=== PATIENT | male | born 1940 | race Caucasian/White ===

== ENCOUNTER 2016-12-10 08:00 | Emergency (ER) | payer MEDICARE, OTHER ==
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
[2016-12-10 09:31] VITALS: BP 140/81; PULSE 69; RESP 18
--- NOTE | 2016-12-10 09:41 | US ---
EXAMINATION TYPE: US venous doppler duplex LE RT DATE OF EXAM: 12/10/2016 9:32 AM TECHNIQUE: Duplex Doppler ultrasound examination of the right lower extremity. COMPARISON: NONE CLINICAL HISTORY: 76-year-old male with Pain. SIDE PERFORMED: Right FINDINGS: VESSELS IMAGED: External Iliac Vein (EIV) Common Femoral Vein Deep Femoral Vein Greater Saphenous Vein * Femoral Vein Popliteal Vein Small Saphenous Vein * Proximal Calf Veins (* superficial vessels) Right Leg: Negative for DVT IMPRESSION: No evidence for DVT within the right lower extremity imaged from the groin to the upper calf.
--- NOTE | 2016-12-10 09:54 | XR ---
EXAMINATION TYPE: XR knee complete RT DATE OF EXAM: 12/10/2016 9:39 AM CLINICAL HISTORY: pain TECHNIQUE: Frontal, lateral and oblique images of the right foot are obtained. COMPARISON: None. FINDINGS: There is no acute fracture/dislocation evident. The joint spaces appear mildly narrowed. Small patellar joint effusion noted. The overlying soft tissue appears unremarkable. IMPRESSION: There is no acute fracture or dislocation. ICD 10 NO FRACTURE, INITIAL EVALUATION
[2016-12-10 10:45] VITALS: TEMP 98
== END 2016-12-10 10:46 | disposition home or self-care (01) ==
LOC: EC 08:00
DX: M79.604 Pain in right leg (principal); M25.561 Pain in right knee; J42 Unspecified chronic bronchitis; E07.9 Disorder of thyroid, unspecified; Z87.891 Personal history of nicotine dependence; Z79.82 Long term (current) use of aspirin; Z79.52 Long term (current) use of systemic steroids
CPT/HCPCS: 99284

== ENCOUNTER 2018-01-28 22:05 | Inpatient (IN) | payer MEDICARE, OTHER ==
[2018-01-28] MEDS ORDERED: PANTOPRAZOLE 40 MG/10 ML VIAL IVP STA (23:00)
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
[2018-01-28 23:09] LABS: Basophils # (A) 0.1 k/uL (0-0.2); Basophils % (A) 1 %; Eosinophils # (A) 0.2 k/uL (0-0.7); Eosinophils % (A) 3 %; HCT 37.7 % (39.0-53.0); HGB 13.2 gm/dL (13.0-17.5); Lymphocytes # (A) 1.9 k/uL (1.0-4.8); Lymphocytes % (A) 28 %; MCH 29.9 pg (25.0-35.0); MCHC 34.9 g/dL (31.0-37.0); MCV 85.6 fL (80.0-100.0); Mean Platelet Volume 7.9; Monocytes # (A) 0.5 k/uL (0-1.0); Monocytes % (A) 7 %; Neutrophils # (A) 4.2 k/uL (1.3-7.7); Neutrophils % (A) 60 %; Platelet Count 208 k/uL (150-450); RDW 13.2 % (11.5-15.5)
[2018-01-28 23:22] LABS: Calcium 9.1 mg/dL (8.4-10.2); Potassium 4.2 mmol/L (3.5-5.1); Total Bilirubin 0.9 mg/dL (0.2-1.3); Total Protein 6.4 g/dL (6.3-8.2)
[2018-01-28 23:33] LABS: Creatine Kinase 66 U/L (55-170)
[2018-01-28 23:43] LABS: Prothrombin Time 9.6 sec (9.0-12.0)
[2018-01-28 23:44] LABS: Partial Thromboplastin Time 21.7 sec (22.0-30.0)
[2018-01-28 23:46] LABS: Creatine Kinase MB 1.4 ng/mL (0.0-2.4); Troponin I <0.012 ng/mL (0.000-0.034)
--- NOTE | 2018-01-28 23:47 | XR ---
EXAMINATION TYPE: XR abdomen acute w cxr DATE OF EXAM: 01/28/2018 COMPARISON: Chest x-ray 08/16/2015 HISTORY: Vomiting blood. Chest pain. TECHNIQUE: 4 views FINDINGS: Lungs are clear. There is no heart failure. Heart size is normal. There is no pleural effusion. Bowel gas pattern is normal. There is no sign of intestinal obstruction or pneumoperitoneum. Fecal pattern is normal. There are no pathologic calcifications over the kidney s. IMPRESSION: Nonacute abdomen. Chest is stable compared to old exam.
[2018-01-29] MEDS ORDERED: NALOXONE 0.4 MG/ML 1 ML VIAL IV PRN (00:57)
[2018-01-29] MEDS: SODIUM CHLORIDE 0.9% 1,000 ML IV SCH ×3 (01:39→20:10)
[2018-01-29 02:39] LABS: Glucose,Whole Blood 127 mg/dL (75-99)
[2018-01-29 03:02] VITALS: BMI 29.2
[2018-01-29 04:58] LABS: Basophils % (A) 1 %; Eosinophils # (A) 0.1 k/uL (0-0.7); Eosinophils % (A) 1 %; HCT 31.9 % (39.0-53.0); HGB 11.1 gm/dL (13.0-17.5); Lymphocytes # (A) 0.9 k/uL (1.0-4.8); Lymphocytes % (A) 17 %; MCH 29.9 pg (25.0-35.0); MCHC 34.9 g/dL (31.0-37.0); MCV 85.6 fL (80.0-100.0); Mean Platelet Volume 7.8; Monocytes # (A) 0.4 k/uL (0-1.0); Monocytes % (A) 6 %; Neutrophils # (A) 4.1 k/uL (1.3-7.7); Neutrophils % (A) 72 %; Platelet Count 175 k/uL (150-450); RBC 3.72 m/uL (4.30-5.90); WBC 5.6 k/uL (3.8-10.6)
[2018-01-29 05:16] LABS: Calcium 8.3 mg/dL (8.4-10.2); Phosphorus 2.9 mg/dL (2.5-4.5); Potassium 4.7 mmol/L (3.5-5.1)
[2018-01-29] MEDS: PANTOPRAZOLE 40 MG/10 ML VIAL IV SCH ×2 (09:38→20:11)
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
[2018-01-29 11:54] LABS: HCT 32.5 % (39.0-53.0); MCH 29.3 pg (25.0-35.0); MCHC 33.7 g/dL (31.0-37.0); MCV 86.8 fL (80.0-100.0); Mean Platelet Volume 8.1; Platelet Count 176 k/uL (150-450); RBC 3.74 m/uL (4.30-5.90); RDW 13.4 % (11.5-15.5); WBC 5.1 k/uL (3.8-10.6)
[2018-01-29 17:34] LABS: HCT 31.1 % (39.0-53.0); HGB 10.6 gm/dL (13.0-17.5); MCH 29.7 pg (25.0-35.0); MCHC 34.1 g/dL (31.0-37.0); MCV 87.1 fL (80.0-100.0); Platelet Count 174 k/uL (150-450); RBC 3.58 m/uL (4.30-5.90); RDW 13.3 % (11.5-15.5)
[2018-01-29 18:17] LABS: Appearance,Urine Clear (Clear); Bilirubin,Urine Negative (Negative); Blood,Urine Negative (Negative); Color,Urine Light Yellow; Glucose,Urine (UA) Negative (Negative); Ketones,Urine Negative (Negative); Leukocyte Esterase,Urine Negative (Negative); Nitrite,Urine Negative (Negative); Protein,Urine Negative (Negative); Urobilinogen,Urine <2.0 mg/dL (<2.0)
[2018-01-29 23:22] LABS: HCT 29.5 % (39.0-53.0); HGB 10.2 gm/dL (13.0-17.5); MCH 29.7 pg (25.0-35.0); MCHC 34.5 g/dL (31.0-37.0); MCV 86.3 fL (80.0-100.0); Mean Platelet Volume 7.9; Platelet Count 160 k/uL (150-450); RBC 3.42 m/uL (4.30-5.90); RDW 13.3 % (11.5-15.5)
[2018-01-30] MEDS: SODIUM CHLORIDE 0.9% 1,000 ML IV SCH ×3 (04:22→17:18)
[2018-01-30 04:47] LABS: Basophils % (A) 1 %; Eosinophils # (A) 0.1 k/uL (0-0.7); Eosinophils % (A) 3 %; HCT 30.9 % (39.0-53.0); HGB 10.4 gm/dL (13.0-17.5); Lymphocytes % (A) 26 %; MCH 29.5 pg (25.0-35.0); MCHC 33.6 g/dL (31.0-37.0); MCV 87.9 fL (80.0-100.0); Mean Platelet Volume 7.7; Monocytes # (A) 0.3 k/uL (0-1.0); Monocytes % (A) 7 %; Neutrophils # (A) 2.3 k/uL (1.3-7.7); Neutrophils % (A) 60 %; Platelet Count 151 k/uL (150-450); RBC 3.51 m/uL (4.30-5.90); RDW 13.5 % (11.5-15.5); WBC 3.8 k/uL (3.8-10.6)
[2018-01-30 04:58] LABS: Anion Gap 8 mmol/L; Blood Urea Nitrogen 15 mg/dL (9-20); Calcium 8.2 mg/dL (8.4-10.2); Carbon Dioxide 23 mmol/L (22-30); Chloride 110 mmol/L (98-107); Glucose 96 mg/dL (74-99); Magnesium 2.2 mg/dL (1.6-2.3); Phosphorus 3.1 mg/dL (2.5-4.5); Potassium 4.2 mmol/L (3.5-5.1); Sodium 141 mmol/L (137-145)
[2018-01-30] MEDS: PANTOPRAZOLE 40 MG/10 ML VIAL IV SCH ×2 (07:50→20:54)
--- NOTE | 2018-01-30 09:28 | P.PN ---
Subjective Progress Note Date: 01/30/18 Principal diagnosis: Acute blood loss anemia with coffee ground hematemesis and black tarry stools Gerard is a 78-year-old white male patient of Dr. Holden who presented to the emergency department on 01/28/2018 with 3 day history of black stools and coffee ground emesis. In the emergency room room he also had some burgundy- colored clots in the emesis upon arrival. Denied any fevers, denied any chills. Denied any lightheadedness or chest pain. Denied any prior history of GI bleeding. He drinks 2 beers on a regular basis, denies drinking any liquor. Acute abdominal series showed nonacute abdomen, and a stable chest. Patient had a previous colonoscopy on 05/29/[address] Valenzuela, which showed sigmoid diverticulosis with no evidence of acute diverticulitis, strictures, polyps or cancer. Other past medical history includes GERD/reflux, hyperlipidemia, hypertension, hypothyroidism, varicose veins for which patient follows with the vascular surgeon, nicotine dependence, which is currently in remission. Surgical history includes appendectomy, hernia repair, hemorrhoidectomy, cataract surgery on the right eye. Initial lab work showed hemoglobin of 13.2 on 01/28/2018, white count of 7.0, no evidence of coagulopathy, INR was 1.0, electrolytes were within normal limits, BUN was 30, creatinine is 1.0. Liver enzymes, lipase were all within normal limits, cardiac enzymes and troponins were negative times one. Serum alcohol was less than 10. His labs hemoglobin is down to 11.1. Patient has had no further episodes of hematemesis or black tarry stool since admission to the ICU. Vital signs remain stable, he is hemodynamically stable. He is awake alert, not requiring any supplemental oxygen. He is afebrile. Denies any distress, denies any chest pain or dyspnea , denies any abdominal discomfort. Patient remains nothing by mouth, and is awaiting to be evaluated by the GI service for possible EGD. On 01/30/2018 patient seen in follow-up in the intensive care unit. He had one episode of dark stool since admission, it is hemoglobin is 10.4, no further episodes of hematemesis or coffee-ground emesis. No leukocytosis, renal profile is within normal limits, electrolytes are within normal limits with exception of chloride which is at 110 on today's blood work. Patient remains hemodynamically stable, he has not required any blood transfusions. Denies any abdominal discomfort, denies any chest pain or dyspnea. He is on room air, O2 sat at 95%. Maintenance IVs 0.9 at 125 ml/hr. Patient is scheduled for EGD today. Objective - Vital Signs Vital signs: Vital Signs Temp 97.7 F 01/30/18 04:00 Pulse 76 01/30/18 07:00 Resp 17 01/30/18 07:00 BP 106/72 01/30/18 07:00 Pulse Ox 95 01/30/18 07:00 Intake & Output 01/29/18 01/30/18 01/30/18 18:59 06:59 18:59 Intake Total 1825 2220 250 Output Total 2049 1075 325 Balance -225 1145 -75 Weight 86.1 kg Intake: IV 1375 1500 250 Sodium Chloride 0.9% 1, 1375 1500 250 000 ml @ 125 mls/hr IV . Q8H [facility] Rx#:[id number] Oral 450 720 Output: Urine 2049 1075 325 Other: Voiding Method Urinal Urinal - Exam GENERAL EXAM: Alert, pleasant, 78-year-old white male that appears younger than his stated age, comfortable in no apparent distress. HEAD: Normocephalic/atraumatic. EYES: Normal reaction of pupils, equal size. Conjunctiva pink, sclera white. NOSE: Clear with pink turbinates. THROAT: No erythema or exudates. NECK: No masses, no JVD, no thyroid enlargement, no adenopathy. CHEST: No chest wall deformity. Symmetrical expansion. LUNGS: Clear lung sounds, no rhonchi, no wheezes or rales noted on today's exam. CVS: Regular rate and rhythm, normal S1 and S2, no gallops, no murmurs, no rubs ABDOMEN: Soft, nontender. No hepatosplenomegaly, normal bowel sounds, no guarding or rigidity. EXTREMITIES: No clubbing, no edema, no cyanosis, 2+ pulses and upper and lower extremities. MUSCULOSKELETAL: Muscle strength and tone normal. SPINE: No scoliosis or deformity SKIN: No rashes CENTRAL NERVOUS SYSTEM: Alert and oriented -3. No focal deficits, tone is normal in all 4 extremities. PSYCHIATRIC: Alert and oriented -3. Appropriate affect. Intact judgment and insight. - Labs CBC & Chem 7: 01/30/18 04:04 01/30/18 04:04 Labs: Abnormal Lab Results - Last 24 Hours (Table) 01/29/18 01/29/18 01/29/18 Range/Units 11:32 17:15 23:13 RBC 3.74 L 3.58 L 3.42 L (4.30-5.90) m/uL Hgb 11.0 L 10.6 L 10.2 L (13.0-17.5) gm/dL Hct 32.5 L 31.1 L 29.5 L (39.0-53.0) % Chloride (98-107) mmol/L Calcium (8.4-10.2) mg/dL 01/30/18 01/30/18 Range/Units 04:04 04:04 RBC 3.51 L (4.30-5.90) m/uL Hgb 10.4 L (13.0-17.5) gm/dL Hct 30.9 L (39.0-53.0) % Chloride 110 H (98-107) mmol/L Calcium 8.2 L (8.4-10.2) mg/dL Assessment and Plan Plan: Assessment: #1. Acute blood loss anemia with coffee ground hematemesis, and black tarry stools. Hemoglobin went down from 13.2, down to 10.4 #2. Chronic EtOH use, 2-3 beers on the daily basis, but no evidence of liver disease. #3. Dysphasia, has been treated with rounds of antibiotics per PCP. limited oropharyngeal exam was negative for any evidence of exudates, redness, or swelling #4. History of diverticulosis as per colonoscopy from 05/29/2016 #5. Hypertension, hyperlipidemia #6. GERD/reflux #7. Hypothyroidism #8. History of appendectomy, hernia repair, hemorrhoidectomy #9. Nicotine dependence, currently in remission Plan: Will await the results of the EGD today, patient has not had any recurrence of hematemesis or coffee ground emesis. He states he had one episode of dark stool since admission, hemoglobin is down to 10.4 on today's exam, patient remains hemodynamically stable, denies any chest pain or dyspnea. Patient can be transferred to the general medical floor today pending the results of the EGD. I performed a history & physical examination of the patient and discussed their management with my nurse practitioner, Claire Nj. I reviewed the nurse practitioner's note and agree with the documented findings and plan of care. Lung sounds are clear. The findings and the impression was discussed with the patient. I attest to the documentation by the nurse practitioner. Critical care time is over 45 minutes Time with Patient: Greater than 30
--- NOTE | 2018-01-30 11:26 | P.PN ---
Subjective Progress Note Date: 01/30/18 Gerard Peoples is a 78-year-old male well known to my practice who presented to the emergency department on 01/28/2018 with 3 day history of black stools and coffee ground emesis. In the emergency room room he also had more bloody emesis with blood clots in the emesis. . Denied any lightheadedness or chest pain. He denied any prior history of GI bleeding. He drinks 2-3 beers daily, denies drinking any liquor. Patient had a previous colonoscopy in [address] Ortega, which showed sigmoid diverticulosis. Initial lab work showed hemoglobin of 13.2 on 01/28/2018, white count of 7.0, no evidence of coagulopathy, INR was 1.0, electrolytes were within normal limits , BUN was 30, creatinine is 1.0. Liver enzymes, lipase were all within normal limits. Serum alcohol was less than 10. His labs hemoglobin is down to 11.1. Patient has had no further episodes of hematemesis or black tarry stool since admission to the ICU. Vital signs remain stable, he is hemodynamically stable. He is awake alert, not requiring any supplemental oxygen. He is afebrile. Denies any distress, denies any chest pain or dyspnea, denies any abdominal discomfort. Patient remains nothing by mouth, and is awaiting to be evaluated by the GI service for possible EGD. 01/30/2018 patient lying in bed comfortably. He is scheduled for an EGD this afternoon. Hemoglobin 10.4. He's had no further episodes of vomiting since in the ER. Denies abdominal pain. Denies any chest pain or shortness of breath. Patient did have one dark stool yesterday. Denies any burning with urination. Denies any tremors. Denies any anxiety or agitation. Objective - Vital Signs Vital signs: Vital Signs Temp 98.1 F 01/30/18 08:00 Pulse 70 01/30/18 09:00 Resp 16 01/30/18 09:00 BP 109/72 01/30/18 09:00 Pulse Ox 95 01/30/18 09:00 Intake & Output 01/29/18 01/30/18 01/30/18 18:59 06:59 18:59 Intake Total 1825 2220 500 Output Total 2050 1075 600 Balance -225 1145 -100 Weight 86.1 kg Intake: IV 1375 1500 500 Sodium Chloride 0.9% 1, 1375 1500 500 000 ml @ 125 mls/hr IV . Q8H [facility] Rx#:[id number] Oral 450 720 Output: Urine 2050 1075 600 Other: Voiding Method Urinal Urinal Urinal - Exam Head normocephalic Neck supple Lungs clear to auscultation bilaterally no wheezing or crackles Heart regular rate and rhythm S1-S2, no rub or gallop Abdomen is soft nontender nondistended positive bowel sounds no hepatosplenomegaly Extremities no edema Neuro alert and orientated to 3 - Labs CBC & Chem 7: 01/30/18 04:04 01/30/18 04:04 Labs: Abnormal Lab Results - Last 24 Hours (Table) 01/29/18 01/29/18 01/29/18 Range/Units 11:32 17:15 23:13 RBC 3.74 L 3.58 L 3.42 L (4.30-5.90) m/uL Hgb 11.0 L 10.6 L 10.2 L (13.0-17.5) gm/dL Hct 32.5 L 31.1 L 29.5 L (39.0-53.0) % Chloride (98-107) mmol/L Calcium (8.4-10.2) mg/dL 01/30/18 01/30/18 Range/Units 04:04 04:04 RBC 3.51 L (4.30-5.90) m/uL Hgb 10.4 L (13.0-17.5) gm/dL Hct 30.9 L (39.0-53.0) % Chloride 110 H (98-107) mmol/L Calcium 8.2 L (8.4-10.2) mg/dL Assessment and Plan Assessment: #1 acute GI bleed, most likely upper GI tract. Patient seen by GI service they' ve planned EGD for today. Continue IV Protonix 40 mg twice daily #2 acute blood loss anemia. Hemoglobin 10.4. Continue to monitor CBC #3 underlying history of chronic alcohol use patient drinks 2-3 beers daily #4 underlying history of hypertension well-controlled on medications #5 previously diagnosed with diverticulosis on colonoscopy in 2016 #6 history of gastroesophageal reflux disease #7 history of hypothyroidism #8 previous history of smoking #9 daily alcohol use of 2-3 beers I performed an examination of the patient and discussed their management with the physician [employer] Rug [employer]ter. I have reviewed the Physician [employer]ter's notes and agree with the documented findings and plan of care
[2018-01-30 11:39] LABS: Basophils % (A) 1 %; Eosinophils # (A) 0.1 k/uL (0-0.7); Eosinophils % (A) 3 %; HCT 30.7 % (39.0-53.0); HGB 10.6 gm/dL (13.0-17.5); Lymphocytes # (A) 0.6 k/uL (1.0-4.8); Lymphocytes % (A) 17 %; MCH 29.6 pg (25.0-35.0); MCHC 34.4 g/dL (31.0-37.0); MCV 86.1 fL (80.0-100.0); Mean Platelet Volume 7.3; Monocytes # (A) 0.2 k/uL (0-1.0); Monocytes % (A) 6 %; Neutrophils # (A) 2.7 k/uL (1.3-7.7); Neutrophils % (A) 72 %; Platelet Count 156 k/uL (150-450); RBC 3.56 m/uL (4.30-5.90); RDW 13.4 % (11.5-15.5); WBC 3.7 k/uL (3.8-10.6)
[2018-01-30] MEDS ORDERED: LORazepam 2 MG/ML INJ IV PRN (14:07)
[2018-01-30] MEDS ORDERED: IV FLUID CONTINUATION 1,000 ML IV ONE (14:30)
[2018-01-30] MEDS ORDERED: PROPOFOL 10 MG/ML 20 ML VIAL IV ONE (14:31)
[2018-01-30] MEDS ORDERED: LIDOCAINE 1% INJ 10MG/ML (20 ML MDV) ONE (14:31)
--- NOTE | 2018-01-30 15:08 | P.PCN ---
Date of Procedure: 01/30/18 Procedure(s) Performed: Procedure: Esophagogastroduodenoscopy and biopsy. Preoperative diagnosis: Upper GI bleeding. Postoperative diagnosis: 1. 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 2. Sliding hiatal hernia. 3. No obvious abnormalities in the stomach and duodenum. 4. Multiple biopsies obtained from the esophageal mass and a picture was taken to be included in the record. Preparation and sedation: Was provided by anesthesia. Brief clinical history: The patient is a 78-year-old male with a past medical history of GERD, hyperlipidemia, hypertension, daily beer consumption 2-3 beers a day admitted with acute hematemesis and melena 2 days. Patient's had one moderate black colored bowel movement daily for 2 days prior to admission, as well as a few episodes of maroon colored hematemesis the day before admission. Reports mild indigestion and mild midepigastric discomfort. No history of peptic ulcer disease or recent EGD. Colonoscopy May 2016 screening for change in bowel habits identified sigmoid diverticulosis. Takes a baby aspirin daily no other antiplatelet or NSAID medications. Denies weight loss, hematochezia, fever or chills. Admission hemoglobin 13.2 dropped to 11.1. Platelet 175. INR 1.0. BUN 30. Creatinine 1.0. LFTs within normal limits. Lipase 166. Acute abdominal series nonacute abdomen. The details are summarized in the history and physical and dictated consultation and progress notes. This evaluation is to assess for a source of upper GI bleeding. Procedure: With the patient on his left lateral decubitus position and after informed consent and adequate sedation, I passed the Olympus-GIF 160 video upper endoscope through the cricopharyngeus down the esophagus. GE junction was irregular and it started around 35-36 cm from the incisors and the tubular esophagus continues for another 4-5 cm. The endoscope was then advanced through a hiatal hernia to the rest of the stomach which was insufflated with air and inspected in detail including the retroflex view in the cardia. Finally , the endoscope was passed through the pylorus into the duodenum. Stomach, pyloric channel, duodenal bulb, post bulbar area and descending duodenum did not show any obvious abnormalities or bleeding. The distal esophagus in the Patterson's segment showed an ulcerated mass measuring around 3 or 4 cm in greatest dimension. There was friability but no spontaneous bleeding. No other obvious abnormalities were seen in the esophagus or any evidence of active bleeding noted in this exam. I obtained multiple biopsies from the esophageal mass as well as couple pictures then the endoscope was withdrawn. The patient tolerated the procedure well. Plan: The patient was briefed regarding the findings on this exam. Will await biopsy results and make further plans.
[2018-01-30] MEDS: THIAMINE 100 MG TAB PO SCH (15:41)
[2018-01-30] MEDS: LEVOTHYROXINE 25 MCG TAB PO SCH (15:42)
[2018-01-30 23:47] VITALS: RESP 18
[2018-01-31] MEDS: SODIUM CHLORIDE 0.9% 1,000 ML IV SCH ×2 (00:45→08:12)
[2018-01-31] MEDS: LEVOTHYROXINE 25 MCG TAB PO SCH (06:00)
[2018-01-31 06:39] VITALS: BP 117/74; PULSE 76; TEMP 98.3
[2018-01-31] MEDS: PANTOPRAZOLE 40 MG/10 ML VIAL IV SCH (07:41)
[2018-01-31] MEDS: THIAMINE 100 MG TAB PO SCH (08:12)
[2018-01-31 08:17] LABS: Basophils % (A) 1 %; Eosinophils # (A) 0.2 k/uL (0-0.7); Eosinophils % (A) 4 %; HCT 32.8 % (39.0-53.0); Lymphocytes # (A) 0.9 k/uL (1.0-4.8); Lymphocytes % (A) 21 %; MCH 29.2 pg (25.0-35.0); MCHC 33.4 g/dL (31.0-37.0); MCV 87.5 fL (80.0-100.0); Mean Platelet Volume 7.8; Monocytes # (A) 0.3 k/uL (0-1.0); Monocytes % (A) 7 %; Neutrophils # (A) 2.8 k/uL (1.3-7.7); Neutrophils % (A) 65 %; Platelet Count 172 k/uL (150-450); RBC 3.75 m/uL (4.30-5.90); RDW 13.4 % (11.5-15.5); WBC 4.3 k/uL (3.8-10.6)
[2018-01-31 08:42] LABS: Anion Gap 10 mmol/L; Blood Urea Nitrogen 10 mg/dL (9-20); Calcium 8.7 mg/dL (8.4-10.2); Carbon Dioxide 25 mmol/L (22-30); Chloride 109 mmol/L (98-107); Glucose 94 mg/dL (74-99); Magnesium 2.2 mg/dL (1.6-2.3); Phosphorus 3.3 mg/dL (2.5-4.5); Potassium 4.3 mmol/L (3.5-5.1); Sodium 144 mmol/L (137-145)
--- NOTE | 2018-01-31 10:36 | P.PN ---
Subjective Progress Note Date: 01/31/18 Principal diagnosis: GI bleed esophageal mass Status post EGD for evaluation of hematemesis findings of esophageal mass in the segment of Majano's esophagus with ulcerated surface status post biopsies. Presently tolerating advance full liquid diet. No recurrence of hematemesis melena or hematochezia. Denies abdominal pain. Hemoglobin 11.0. Objective - Vital Signs Vital signs: Vital Signs Temp 98.3 F 01/31/18 06:38 Pulse 76 01/31/18 06:38 Resp 18 01/31/18 06:38 BP 117/74 01/31/18 06:38 Pulse Ox 96 01/31/18 06:38 Intake & Output 01/30/18 01/31/18 01/31/18 18:59 06:59 18:59 Intake Total 1100 900 Output Total 1200 Balance -100 900 Intake: IV 1100 Sodium Chloride 0.9% 1, 1000 000 ml @ 125 mls/hr IV . Q8H [facility] Rx#:[id number] Oral 900 Output: Urine 1200 Other: Voiding Method Urinal Toilet Urinal # Voids 2 - Exam General appearance: The patient is alert, oriented, in no acute distress. HET: Head is normocephalic and atraumatic. Pupils are equal and reactive. Oropharynx is clear without lesions. Neck: Supple without lymphadenopathy. Trachea midline. Heart: S1 S2. Regular rate and rhythm. Lungs: No crackles or wheezes are heard. Abdomen: Soft, nontender, nondistended with bowel sounds. No peritoneal signs. No palpable organomegaly or masses. Extremities: Normal skin color and turgor. No cyanosis, rash, ulceration, clubbing, or edema. Radial and pedal pulses are 2/4 bilaterally. Neurological: No focal deficits. Strength and sensation are grossly intact. - Labs CBC & Chem 7: 01/31/18 07:45 01/31/18 07:45 Labs: Abnormal Lab Results - Last 24 Hours (Table) 01/30/18 01/31/18 01/31/18 Range/Units 11:02 07:45 07:45 WBC 3.7 L (3.8-10.6) k/uL RBC 3.56 L 3.75 L (4.30-5.90) m/uL Hgb 10.6 L 11.0 L (13.0-17.5) gm/dL Hct 30.7 L 32.8 L (39.0-53.0) % Lymphocytes # 0.6 L 0.9 L (1.0-4.8) k/uL Chloride 109 H (98-107) mmol/L Assessment and Plan (1) Hematemesis Current Visit: Yes Status: Acute Code(s): K92.0 - HEMATEMESIS SNOMED Code( s): 5260511 (2) Acute blood loss anemia Current Visit: Yes Status: Acute Code(s): D62 - ACUTE POSTHEMORRHAGIC ANEMIA SNOMED Code(s): 250403233 (3) Consumes three beers daily Current Visit: Yes Status: Acute Code(s): Z78.9 - OTHER SPECIFIED HEALTH STATUS SNOMED Code(s): 565411913 (4) Melena Current Visit: Yes Status: Acute Code(s): K92.1 - MELENA SNOMED Code(s): 0066199 (5) Upper GI bleed Current Visit: Yes Status: Acute Code(s): K92.2 - GASTROINTESTINAL HEMORRHAGE, UNSPECIFIED SNOMED Code(s): 10902280 (6) Esophageal mass Current Visit: Yes Status: Acute Code(s): K22.9 - DISEASE OF ESOPHAGUS, UNSPECIFIED SNOMED Code(s): 647045300 (7) Majano's esophagus determined by endoscopy Current Visit: Yes Status: Acute Code(s): K22.70 - MAJANO'S ESOPHAGUS WITHOUT DYSPLASIA SNOMED Code(s): 520799563 Plan: 1. Discharge per medicine. Diet as tolerated. Return office in 2-3 weeks. Protonix 40 mg daily. Assessment and plan a care discussed with Dr. Ortega
--- NOTE | 2018-01-31 12:32 | P.DS ---
Providers Date of admission: 01/29/18 00:57 Expected date of discharge: 01/31/18 Attending physician: Lora Holden Consults: 01/29/18 00:57 Consult Physician Urgent Consulting Provider: Saul Sim Consult Reason/Comments: ICU management for upper GI bleed Do you want consulting provider notified?: Yes Primary care physician: Lora Navin [facility] Course: Discharge diagnosis #1 acute GI bleed likely secondary to esophageal mass in the segment of Patterson' s esophagus with ulcerated surface. Biopsies are pending. Continue Protonix. We will hold aspirin until seen in the office #2 acute blood loss anemia secondary to GI bleed #3 underlying history of chronic alcohol use patient drinks 2-3 beers daily #4 underlying history of hypertension well-controlled on medications #5 previously diagnosed with diverticulosis on colonoscopy in 2016 #6 history of gastroesophageal reflux disease #7 history of hypothyroidism #8 previous history of smoking #9 daily alcohol use of 2-3 beers Hospital course Gerard Peoples is a 78-year-old male well known to my practice who presented to the emergency department on 01/28/2018 with 3 day history of black stools and coffee ground emesis. In the emergency room room he also had more bloody emesis with blood clots in the emesis. . Denied any lightheadedness or chest pain. He denied any prior history of GI bleeding. He drinks 2-3 beers daily, denies drinking any liquor. Patient had a previous colonoscopy in [address] Ortega, which showed sigmoid diverticulosis. Initial lab work showed hemoglobin of 13.2 on 01/28/2018, white count of 7.0, no evidence of coagulopathy, INR was 1.0, electrolytes were within normal limits , BUN was 30, creatinine is 1.0. Liver enzymes, lipase were all within normal limits. Serum alcohol was less than 10. His labs hemoglobin is down to 11.1. Patient has had no further episodes of hematemesis or black tarry stool since admission to the ICU. Vital signs remain stable, he is hemodynamically stable. He is awake alert, not requiring any supplemental oxygen. He is afebrile. Denies any distress, denies any chest pain or dyspnea, denies any abdominal discomfort. Patient remains nothing by mouth, and is awaiting to be evaluated by the GI service for possible EGD. Patient is status post EGD with results showing an esophageal mass in segment of Patterson's esophagus with ulcerated surface and no active bleed. Patient is tolerating advancement of diet. Currently on a full liquid. He will receive a soft diet before discharge. Is on is tolerating this will be discharged home. Hemoglobin at discharge was 11. He is scheduled to follow-up with Dr. Abebe in 2-3 weeks. Biopsy results are pending. And depending on those results patient may need to be evaluated by oncology and outpatient setting. Again his vomiting has resolved. He's reports still some residual black stool but this is improving as well. We'll continue holding patient's aspirin until he is evaluated in the office with Dr. Holden. And at that time would recommend checking a CBC. Patient is medical stable for discharge and has been cleared by GI service. GI service has written a prescription for Protonix 80 mg by mouth daily. Patient has also been educated to refrain from alcohol use. I performed an examination of the patient and discussed their management with the physician Vegetable Vendor. I have reviewed the Physician Vegetable Vendor's notes and agree with the documented findings and plan of care Patient Condition at Discharge: Stable Plan - Discharge Summary Discharge Rx Participant: Yes New Discharge Prescriptions: New Pantoprazole [Protonix] 40 mg PO DAILY #30 tablet. Continue Levothyroxine Sodium [Synthroid] 25 mcg PO DAILY Discontinued Aspirin 81 mg PO DAILY Discharge Medication List Levothyroxine Sodium [Synthroid] 25 mcg PO DAILY 05/25/16 [History] Pantoprazole [Protonix] 40 mg PO DAILY #30 tablet. 01/31/18 [Rx] Follow up Appointment(s)/Referral(s): Rosendo Ortega MD [STAFF PHYSICIAN] - 02/17/18 3:00 pm Lora Holden MD [Primary Care Provider] - 1 Week Activity/Diet/Wound Care/Special Instructions: Diet: regular No ETOH Activity: as tolerated patient can be discharged this afternoon as long as he tolerates soft diet Discharge Disposition: HOME SELF-CARE
--- NOTE | 2018-01-31 12:35 | P.PN ---
Subjective Progress Note Date: 01/31/18 Principal diagnosis: Acute blood loss anemia with coffee ground hematemesis and black tarry stools Gerard is a 78-year-old white male patient of Dr. Holden who presented to the emergency department on 01/28/2018 with 3 day history of black stools and coffee ground emesis. In the emergency room room he also had some burgundy- colored clots in the emesis upon arrival. Denied any fevers, denied any chills. Denied any lightheadedness or chest pain. Denied any prior history of GI bleeding. He drinks 2 beers on a regular basis, denies drinking any liquor. Acute abdominal series showed nonacute abdomen, and a stable chest. Patient had a previous colonoscopy on 05/29/[address] Valenzuela, which showed sigmoid diverticulosis with no evidence of acute diverticulitis, strictures, polyps or cancer. Other past medical history includes GERD/reflux, hyperlipidemia, hypertension, hypothyroidism, varicose veins for which patient follows with the vascular surgeon, nicotine dependence, which is currently in remission. Surgical history includes appendectomy, hernia repair, hemorrhoidectomy, cataract surgery on the right eye. Initial lab work showed hemoglobin of 13.2 on 01/28/2018, white count of 7.0, no evidence of coagulopathy, INR was 1.0, electrolytes were within normal limits, BUN was 30, creatinine is 1.0. Liver enzymes, lipase were all within normal limits, cardiac enzymes and troponins were negative times one. Serum alcohol was less than 10. His labs hemoglobin is down to 11.1. Patient has had no further episodes of hematemesis or black tarry stool since admission to the ICU. Vital signs remain stable, he is hemodynamically stable. He is awake alert, not requiring any supplemental oxygen. He is afebrile. Denies any distress, denies any chest pain or dyspnea , denies any abdominal discomfort. Patient remains nothing by mouth, and is awaiting to be evaluated by the GI service for possible EGD. On 01/30/2018 patient seen in follow-up in the intensive care unit. He had one episode of dark stool since admission, it is hemoglobin is 10.4, no further episodes of hematemesis or coffee-ground emesis. No leukocytosis, renal profile is within normal limits, electrolytes are within normal limits with exception of chloride which is at 110 on today's blood work. Patient remains hemodynamically stable, he has not required any blood transfusions. Denies any abdominal discomfort, denies any chest pain or dyspnea. He is on room air, O2 sat at 95%. Maintenance IVs 0.9 at 125 ml/hr. Patient is scheduled for EGD today. On 01/31/2018 patient seen in follow-up on medical surgical floor. He was transferred out of intensive care yesterday, has not had any recurrence of GI bleeding, status post EGD with biopsy on 01/30/2018. Esophageal mass in segment of Patterson's esophagus with ulcerated surface was found that was not actively bleeding at the time of the exam. Patient is sliding hiatal hernia, no other obvious abnormalities were noted in the stomach and duodenum. Biopsy results are pending at this time. Patient remains hemodynamically stable. His hemoglobin is 11.0. No hematemesis, no melena. Denies any chest pain or dyspnea. Currently on room air, O2 sat 96%. Vital signs are stable, patient is afebrile, lung sounds are clear, no acute complaints. From pulmonary/ critical care standpoint patient remains stable, we will sign off at this time, and see the patient on as-needed basis. Objective - Vital Signs Vital signs: Vital Signs Temp 98.3 F 01/31/18 06:38 Pulse 76 01/31/18 06:38 Resp 18 01/31/18 06:38 BP 117/74 01/31/18 06:38 Pulse Ox 96 01/31/18 06:38 Intake & Output 01/30/18 01/31/18 01/31/18 18:59 06:59 18:59 Intake Total 1100 900 Output Total 1200 Balance -100 900 Intake: IV 1100 Sodium Chloride 0.9% 1, 1000 000 ml @ 125 mls/hr IV . Q8H [facility] Rx#:[id number] Oral 900 Output: Urine 1200 Other: Voiding Method Urinal Toilet Urinal # Voids 2 - Exam GENERAL EXAM: Alert, pleasant, 78-year-old white male that appears younger than his stated age, comfortable in no apparent distress. HEAD: Normocephalic/atraumatic. EYES: Normal reaction of pupils, equal size. Conjunctiva pink, sclera white. NOSE: Clear with pink turbinates. THROAT: No erythema or exudates. NECK: No masses, no JVD, no thyroid enlargement, no adenopathy. CHEST: No chest wall deformity. Symmetrical expansion. LUNGS: Clear lung sounds, no rhonchi, no wheezes or rales noted on today's exam. CVS: Regular rate and rhythm, normal S1 and S2, no gallops, no murmurs, no rubs ABDOMEN: Soft, nontender. No hepatosplenomegaly, normal bowel sounds, no guarding or rigidity. EXTREMITIES: No clubbing, no edema, no cyanosis, 2+ pulses and upper and lower extremities. MUSCULOSKELETAL: Muscle strength and tone normal. SPINE: No scoliosis or deformity SKIN: No rashes CENTRAL NERVOUS SYSTEM: Alert and oriented -3. No focal deficits, tone is normal in all 4 extremities. PSYCHIATRIC: Alert and oriented -3. Appropriate affect. Intact judgment and insight. - Labs CBC & Chem 7: 01/31/18 07:45 01/31/18 07:45 Labs: Abnormal Lab Results - Last 24 Hours (Table) 01/31/18 01/31/18 Range/Units 07:45 07:45 RBC 3.75 L (4.30-5.90) m/uL Hgb 11.0 L (13.0-17.5) gm/dL Hct 32.8 L (39.0-53.0) % Lymphocytes # 0.9 L (1.0-4.8) k/uL Chloride 109 H (98-107) mmol/L Assessment and Plan Plan: Assessment: #1. Acute blood loss anemia with coffee ground hematemesis, and black tarry stools. Hemoglobin went down from 13.2, down to 11.0 #2. Chronic EtOH use, 2-3 beers on the daily basis, but no evidence of liver disease. #3. Dysphasia, has been treated with rounds of antibiotics per PCP. limited oropharyngeal exam was negative for any evidence of exudates, redness, or swelling #4. History of diverticulosis as per colonoscopy from 05/29/2016 #5. Hypertension, hyperlipidemia #6. GERD/reflux #7. Hypothyroidism #8. History of appendectomy, hernia repair, hemorrhoidectomy #9. Nicotine dependence, currently in remission Plan: EGD results have been reviewed, patient has not had any recurrence of GI bleeding. Hemodynamically stable, has not required any blood transfusion this admission. On room air, denies any chest pain, denies any shortness of breath or abdominal discomfort. No acute events overnight. From pulmonary/critical care standpoint patient remains stable, we'll sign off at this time and see the patient on as-needed basis. I performed a history & physical examination of the patient and discussed their management with my nurse practitioner, Claire Nj. I reviewed the nurse practitioner's note and agree with the documented findings and plan of care. Lung sounds are clear. The findings and the impression was discussed with the patient. I attest to the documentation by the nurse practitioner. Time with Patient: Less than 30
== END 2018-01-31 14:03 | disposition home or self-care (01) | DRG 381 ==
LOC: EC 22:05 → 6ICU 01-29 00:57 → 4MS4W 01-30 16:51
PROVIDERS: ADMIT Internal Medicine; ATTEND Internal Medicine
PROC: 0DB58ZX Excision of Esophagus, Via Natural or Artificial Opening Endoscopic, Diagnostic (ICD-10-PCS; principal; 2018-01-30 15:15)
DX: K22.70 Barrett's esophagus without dysplasia (principal); D62 Acute posthemorrhagic anemia; E03.9 Hypothyroidism, unspecified; E78.5 Hyperlipidemia, unspecified; Z87.891 Personal history of nicotine dependence; I10 Essential (primary) hypertension; J42 Unspecified chronic bronchitis; K21.9 Gastro-esophageal reflux disease without esophagitis; K44.9 Diaphragmatic hernia without obstruction or gangrene; K57.30 Diverticulosis of large intestine without perforation or abscess without bleeding; R47.02 Dysphasia; Z79.82 Long term (current) use of aspirin; Z79.890 Hormone replacement therapy; Z72.89 Other problems related to lifestyle; H26.9 Unspecified cataract; Z98.41 Cataract extraction status, right eye
CPT/HCPCS: 36415; 43239; 74022; 80048; 80053; 80320; 81003; 82550; 82553; 83690; 83735; 84100; 84484; 85025; 85027; 85610; 85730; 86850; 86900; 86901; 88305; 96374; 99285

== ENCOUNTER → 2018-02-05 | Outpatient (CLI) | payer MEDICARE, OTHER ==
[2018-02-05 11:12] LABS: T4, Free (Free Thyroxine) 1.03 ng/dL (0.78-2.19)
== END | disposition home or self-care (01) ==
LOC: LABWHC1 10:19
PROVIDERS: ATTEND Otolaryngology
DX: E06.9 Thyroiditis, unspecified (principal); E03.9 Hypothyroidism, unspecified
CPT/HCPCS: 36415; 84439; 84443; 86376

== ENCOUNTER 2018-03-06 09:46 | Day surgery (SDC) | payer MEDICARE, OTHER ==
[2018-03-04 11:13] VITALS: BMI 26.9
[~2018-03-06 09:46] MED LIST: LACTATED RINGERS 1,000 ML IV SCH; LIDOCAINE 1% 20 ML VIAL (10MG/ML) FOR IV START INTRADERMA PRN
[2018-03-06 10:12] VITALS: TEMP 98.4
[2018-03-06] MEDS ORDERED: LIDOCAINE 1% INJ 10MG/ML (20 ML MDV) ONE (10:46)
[2018-03-06] MEDS ORDERED: PROPOFOL 10 MG/ML 20 ML VIAL IV ONE (10:46)
--- NOTE | 2018-03-06 11:15 | P.PCN ---
Date of Procedure: 03/06/18 Procedure(s) Performed: Procedure: Esophagogastroduodenoscopy and biopsy. Preoperative diagnosis: History of esophageal mass in his segment of Patterson's esophagus with biopsies negative for cancer. Postoperative diagnosis: 1. 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 2. Sliding hiatal hernia. 3. No obvious abnormalities in the stomach and duodenum. 4. Multiple biopsies obtained from the esophageal mass and a picture was taken to be included in the record. Preparation and sedation: Was provided by anesthesia. Brief clinical history: The patient is a 78-year-old male with a past medical history of GERD, hyperlipidemia, hypertension, daily beer consumption 2-3 beers a day was admitted last month with acute hematemesis and melena 2 days. Patient's had one moderate black colored bowel movement daily for 2 days prior to that admission, as well as a few episodes of maroon colored hematemesis the day before admission. Colonoscopy May 2016 screening for change in bowel habits identified sigmoid diverticulosis. He was taking a baby aspirin daily but no other antiplatelet or NSAID medications. Denied weight loss, hematochezia, fever or chills. The patient underwent an upper endoscopy and an esophageal mass was identified in the esophagus in his segment of Patterson's esophagus. The biopsies showed Patterson's esophagus without dysplasia or infiltrating cancer. I scheduled this evaluation to obtain additional biopsies of that area because of suspicion of malignancy. Procedure: With the patient on his left lateral decubitus position and after informed consent and adequate sedation, I passed the Olympus-GIF 160 video upper endoscope through the cricopharyngeus down the esophagus. GE junction was irregular and it started around 34 cm from the incisors and the tubular esophagus continues for another 4-5 cm. The endoscope was then advanced through a hiatal hernia to the rest of the stomach which was insufflated with air and inspected in detail including the retroflex view in the cardia. Finally , the endoscope was passed through the pylorus into the duodenum. Stomach, pyloric channel, duodenal bulb, post bulbar area and descending duodenum did not show any obvious abnormalities or bleeding. The distal esophagus in the Patterson's segment showed an ulcerated mass measuring around 3 or 4 cm in greatest dimension. There was friability but no spontaneous bleeding. No other obvious abnormalities were seen in the esophagus or any evidence of active bleeding noted in this exam. I obtained multiple biopsies from the esophageal mass as well as couple pictures then the endoscope was withdrawn. The patient tolerated the procedure well. Plan: The patient was briefed regarding the findings on this exam. Will await biopsy results and make further plans. I will keep you updated on his progress.
[2018-03-06 11:24] VITALS: BP 114/78; PULSE 82; RESP 18
== END 2018-03-06 12:09 | disposition home or self-care (01) ==
LOC: ORWHC2ENDO 09:46
DX: C15.5 Malignant neoplasm of lower third of esophagus (principal); K44.9 Diaphragmatic hernia without obstruction or gangrene; K21.9 Gastro-esophageal reflux disease without esophagitis; I10 Essential (primary) hypertension; E78.5 Hyperlipidemia, unspecified; Z79.82 Long term (current) use of aspirin; Z79.899 Other long term (current) drug therapy
CPT/HCPCS: 88305; 43239; J2001; J2704

== ENCOUNTER → 2018-05-03 | Outpatient (CLI) | payer MEDICARE, OTHER ==
--- NOTE | 2018-05-03 16:29 | PE ---
EXAMINATION TYPE: PET CT fusion skull to thigh DATE OF EXAM: 05/03/2018 COMPARISON: NONE HISTORY: Esophageal cancer initial staging study per order though patient states this was diagnosed 2 years ago. Recent right ear biopsy positive for malignancy one month ago per patient. TECHNIQUE: Following the intravenous administration of 12.74 mCi of F-18 FDG, whole body images are performed from the top of skull to the midthigh. Images are reviewed on the computer in the coronal, axial, and sagittal planes. Reconstructed rotating images are created on independent workstation an d reviewed on the computer. A noncontrast CT is performed in conjunction with the PET scan. SCAN: Initial Scan FINDINGS: HEAD AND NECK: No suspicious areas of abnormal hypermetabolic uptake are identified including evalua tion of the scalp. CHEST, MEDIASTINUM, AND HILAR REGION: There is focus of increased uptake in the distal esophagus appe ars to correspond to eccentric soft tissue 1.6 cm round lesion involving posterior left aspect of the esophageal lumen on axial image 142, max SUV is 5.42. No suspicious adjacent adenopathy is identifie d. No additional areas of abnormal hypermetabolic uptake are seen. ABDOMEN AND PELVIS: No suspicious areas of abnormal hypermetabolic uptake are present. Normal excreti on and bladder uptake is present. OSSEOUS STRUCTURES: No suspicious hypermetabolic uptake is seen. OTHER CT: Mild underlying emphysematous change is present with mild by basilar linear scarring and/or atelectasis. There is moderate three-vessel coronary artery calcification which is noted marker for coronary arter y disease. Small degree of bilateral gynecomastia is identified. Small hiatal hernia is present below level of neoplasm. Diverticula are seen in the left and sigmoid colon. There is no CT evidence for acute diverticulitis. There is mild calcified plaque of the distal abdominal aorta extending into pelvic branch vessels. IMPRESSION: Abnormal hypermetabolic uptake distal esophagus likely corresponds to biopsy-proven neopl asm. No metastatic disease is evident.
== END | disposition home or self-care (01) ==
LOC: RADPETMAIN 09:25
PROVIDERS: ATTEND Internal Medicine Hematology & Oncology
DX: C15.9 Malignant neoplasm of esophagus, unspecified (principal)
CPT/HCPCS: 78815; A9552

== ENCOUNTER → 2018-08-09 | Outpatient (CLI) | payer MEDICARE, OTHER ==
--- NOTE | 2018-08-10 20:05 | PE ---
EXAMINATION TYPE: PET CT fusion skull to thigh DATE OF EXAM: 08/09/2018 CLINICAL HISTORY: 78 year-old male restaging esophageal cancer. Chemoradiation therapy 3 weeks ago. TECHNIQUE: Following the intravenous administration of 13.5 mCi of F-18 FDG, whole body images are performed from the skull base to the midthigh. Images are reviewed on the computer in the coronal, a xial, and sagittal planes. Reconstructed rotating images are created on independent workstation and reviewed on the computer. A localization and attenuation correction CT is performed in conjunction with the PET scan. Glucose level: 86 mg/dL CTDI: 4.66 mGy DLP: 414.54 mGy-cm COMPARISON: 05/03/2018 FINDINGS: PET: Physiologic FDG uptake within the neck. Residual mild thickening distal esophagus with a small hiatal hernia demonstrated. There is no signif icant residual FDG uptake here versus intense uptake of 5.4, previously. Average liver SUV 2.3. Mild dotted activity on either side of the pelvis corresponds well to the ureters. Focal mild uptake at the upper coccyx without any discrete CT abnormality, max SUV 2.1 (versus 1.8, p reviously). Otherwise, physiologic FDG uptake within the chest, abdomen and pelvis. ATTENUATION CORRECTION CT: Small mucosal retention cysts along the floors of the maxillary sinuses. Mastoid air cells well pneum atized. Dental amalgam artifacts. No cervical lymphadenopathy. The heart is upper limits of normal size of the pericardial effusion. Mild coronary vessel calcificat ions. Ectatic/borderline aneurysmal ascending aorta 4.0 cm. Conventional branching anatomy. No thora cic lymphadenopathy. Mild diffuse bronchial wall thickening could represent chronic bronchitis or ast hma. No consolidation or pleural effusion. No dilated small bowel, free fluid, or free air. No mesenteric or retroperitoneal lymphadenopathy. Mo derate stool burden. No pericolonic inflammatory change. Some surgical material at the cecum suggesti ng prior appendectomy. Bladder not distended. No abnormal fluid collection in the pelvis or pelvic lymphadenopathy. Bones: No osseous destructive process. IMPRESSION: 1. Mild residual wall thickening distal esophagus but with complete clearance of the previous abnorma l hypermetabolism. Findings compatible with treatment response. 2. Focal mild uptake along the upper coccyx without discrete CT abnormality. This was present to some extent on the prior study as well. Correlate for any history of tailbone injury. 3. No evidence for metastatic disease. 4. Incidental: Small hiatal hernia and borderline aneurysmal ascending aorta at 4.0 cm.
== END | disposition home or self-care (01) ==
LOC: RADPETMAIN 07:14
PROVIDERS: ATTEND Internal Medicine Hematology & Oncology
DX: C15.5 Malignant neoplasm of lower third of esophagus (principal); R94.8 Abnormal results of function studies of other organs and systems; K22.8 Other specified diseases of esophagus
CPT/HCPCS: 78815; A9552

== ENCOUNTER → 2018-11-17 | Outpatient (CLI) | payer MEDICARE, OTHER ==
--- NOTE | 2018-11-17 12:42 | CT ---
EXAMINATION TYPE: CT ChestAbdPelvis wo con DATE OF EXAM: 11/17/2018 COMPARISON: PET/CT 08/09/2018 HISTORY: 78-year-old male follow up study for known esophageal CA. TECHNIQUE: Contiguous axial scanning of the chest, abdomen, and pelvis without IV contrast. Coronal a nd sagittal reconstructions performed. CT DLP: 1047 mGycm Automated exposure control for dose reduction was used. FINDINGS: Chest: Heart normal sinus without pericardial effusion. Coronary vessel calcifications are present. Stable borderline aneurysm ascending aorta at 4.0 cm. Mild atherosclerotic arch calcifications with c onventional arch vessel branching anatomy. Mildly enlarged caliber to the main right and left pulmonary arteries measuring 2.6 and 2.7 cm, respe ctively. No thoracic lymphadenopathy by CT size criteria. Evaluation of the lung shows mild upper lung emphysematous change. No suspicious pulmonary nodules. N o pleural effusions. Mild cerebral ventral wall thickening of the distal esophagus is similar to prior PET/CT. Small hiata l hernia just below. Just adjacent along the left aorta esophageal junction, there is some new soft t issue or fluid thickening measuring 2.6 cm, axial image 53. ABDOMEN: Noncontrast appearance of the liver, gallbladder, adrenal glands, kidneys, spleen, and atrophic pancr eas show no gross abnormality. Note limitation in assessment of solid abdominal viscera, lymph nodes, and vascular structures due to lack of IV contrast. No dilated small bowel, free fluid, or free air. No mesenteric or retroperitoneal lymphadenopathy. Some surgical material at the cecum suggesting prior appendectomy. Oral contrast progressed to the he patic flexure. Moderate stool burden. Sigmoid diverticulosis. Pelvis: Bladder urine distended. No abnormal fluid collection in the pelvis or pelvic lymphadenopathy seen. Bones: Mild degenerative changes of the hips. Facet arthropathy lower lumbar spine. No osseous destructive p rocess seen. IMPRESSION: 1. SIMILAR MILD CIRCUMFERENTIAL WALL THICKENING OF THE DISTAL ESOPHAGUS AT THE SITE OF PATIENT'S MONE RICCI NEOPLASM. ADJACENT SMALL HIATAL HERNIA REDEMONSTRATED. 2. ALSO JUST ADJACENT ALONG THE LEFT AORTOESOPHAGEAL JUNCTION, THERE IS SOME NEW SOFT TISSUE THICKENI NG OR FLUID MEASURING 2.6 CM. FINDINGS MAY REPRESENT POSTTREATMENT CHANGE RELATING TO THE RADIATION P ORT. CLOSE FOLLOW-UP RECOMMENDED TO ENSURE STABILITY OR RESOLUTION. 3. INCIDENTAL: COPD WITH MILD EMPHYSEMA, PULMONARY ARTERIAL HYPERTENSION, STABLE BORDERLINE ANEURYSM ASCENDING AORTA AT 4.0 CM, AND SIGMOID DIVERTICULOSIS.
== END | disposition home or self-care (01) ==
LOC: RADCTMAIN 09:53
PROVIDERS: ATTEND Radiology Radiation Oncology
DX: K22.8 Other specified diseases of esophagus (principal); K44.9 Diaphragmatic hernia without obstruction or gangrene; J43.9 Emphysema, unspecified; I27.21 Secondary pulmonary arterial hypertension; I71.2 Thoracic aortic aneurysm, without rupture; K57.30 Diverticulosis of large intestine without perforation or abscess without bleeding; C15.5 Malignant neoplasm of lower third of esophagus
CPT/HCPCS: 71250; 74176

== ENCOUNTER → 2018-11-29 | Outpatient (CLI) | payer MEDICARE, OTHER ==
--- NOTE | 2018-12-01 21:37 | PE ---
EXAMINATION TYPE: PET CT fusion skull to thigh DATE OF EXAM: 11/29/2018 COMPARISON: CT chest abdomen pelvis 11/17/2018 Prior PET/CT: 08/09/2018, 05/03/2018 HISTORY: Malignant esophageal cancer TECHNIQUE: Following the intravenous administration of 10.27 mCi of F-18 FDG, whole body images are performed from the skull base to the midthigh. Images are reviewed on the computer in the coronal, a xial, and sagittal planes. Reconstructed rotating images are created on independent workstation and reviewed on the computer. A localization and attenuation correction CT is performed in conjunction with the PET scan. DLP: 410.90 mGycm SCAN: Subsequent Blood glucose: 85 mg/dL Average Mediastinum SUV: 1.11 Average Liver SUV: 1.98 FINDINGS: NECK: There is mild increased uptake within the left C6-C7 facet may be degenerative in nature. Susp icious uptake to suggest metastatic disease is not identified. THORAX: No suspicious uptake ABDOMEN: No suspicious uptake PELVIS: No suspicious uptake OSSEOUS STRUCTURES: No suspicious uptake LOCALIZATION CT: Ascending thoracic aorta at the level the main pulmonary artery is 4.1 cm. The main pulmonary artery the bifurcation is 2.9 cm. There may be a gastric pull-through. Suspicious thickenin g is not identified. COMPARISON: No significant change from recent CT chest abdomen pelvis. No suspicious changes from the comparison PET/CT of July 2018.. IMPRESSION: 1. No suspicious uptake to suggest recurrent or metastatic esophageal cancer. 2. Ascending thoracic aortic aneurysm 4.1 cm.
== END | disposition home or self-care (01) ==
LOC: RADPETMAIN 11:49
PROVIDERS: ATTEND Radiology Radiation Oncology
DX: C15.5 Malignant neoplasm of lower third of esophagus (principal); I71.2 Thoracic aortic aneurysm, without rupture; Z92.21 Personal history of antineoplastic chemotherapy
CPT/HCPCS: 78815; A9552

== ENCOUNTER 2018-12-23 07:18 | Day surgery (SDC) | payer MEDICARE, OTHER ==
[2018-12-19 09:34] VITALS: BMI 26.9
[2018-12-23 07:32] VITALS: RESP 16; TEMP 98.2
[2018-12-23] MEDS ORDERED: LIDOCAINE 1% INJ 10MG/ML (20 ML MDV) ONE (07:59)
[2018-12-23] MEDS ORDERED: PROPOFOL 10 MG/ML 20 ML VIAL IV ONE (07:59)
--- NOTE | 2018-12-23 08:36 | P.PCN ---
Date of Procedure: 12/23/18 Procedure(s) Performed: Procedure: Esophagogastroduodenoscopy and biopsy. Preoperative diagnosis: History of esophageal cancer. Postoperative diagnosis: 1. Ulcerated area in the segment of Patterson's esophagus corresponding to the esophageal mass previously treated. 2. Multiple biopsies obtained. Preparation and sedation: Was provided by anesthesia. Brief clinical history: The patient is a 78-year-old male with history of Patterson's esophagus and esophageal mass that showed on biopsy invasive moderately differentiated adenocarcinoma back in February 2018. The patient completed treatment with radiation and chemotherapy towards the end of 2017 and apparently he declined surgical intervention. This evaluation is for follow- up. He reports feeling fine without any difficulties swallowing. Procedure: With the patient on his left lateral decubitus position and after informed consent and adequate sedation, I passed the Olympus-GIF H190 video upper endoscope through the cricopharyngeus down the esophagus. GE junction was irregular as previously described and started around 34 cm from the incisors and the tubular esophagus continued for another 5 cm or so. There was a hiatal hernia as previously described. In the area corresponding to the ulcerated mass in the Patterson's segment, there was a residual longitudinal ulceration measuring around 3 cm covered with white exudate with prominent friable folds at its edges. I took couple pictures and obtained multiple biopsies. The endoscope was then passed into the stomach which was insufflated with air and inspected in detail including the retroflex view in the cardia. Finally, the endoscope was passed through the pylorus into the duodenum. No obvious abnormalities in the stomach or duodenum and no biopsies were obtained. The patient tolerated the procedure well. Plan: I summarized the findings to the patient. Will await pathology results and make further plans. He will follow up with you as planned.
[2018-12-23 08:40] VITALS: BP 121/81; PULSE 71
== END 2018-12-23 09:16 | disposition home or self-care (01) ==
LOC: ORWHC2ENDO 07:18
DX: K22.70 Barrett's esophagus without dysplasia (principal); Z85.01 Personal history of malignant neoplasm of esophagus; K21.9 Gastro-esophageal reflux disease without esophagitis; E78.5 Hyperlipidemia, unspecified; Z92.21 Personal history of antineoplastic chemotherapy; J44.9 Chronic obstructive pulmonary disease, unspecified; Z79.82 Long term (current) use of aspirin; Z79.890 Hormone replacement therapy
CPT/HCPCS: 43239; J2001; J2704; 88305

== ENCOUNTER → 2019-03-30 | Outpatient (CLI) | payer MEDICARE, OTHER ==
--- NOTE | 2019-03-30 14:36 | CT ---
EXAMINATION TYPE: CT ChestAbdPelvis w con DATE OF EXAM: 03/30/2019 COMPARISON: 11/29/2018 and 08/09/2018 HISTORY: 79-year-old male follow-up Esophageal cancer TECHNIQUE: Contiguous axial scanning of the chest, abdomen, and pelvis performed with IV Contrast, pa tient injected with 100 mL of Isovue 300. Delayed images through the kidneys were obtained. Coronal/s agittal reconstructions performed. CT DLP: 752.7 mGycm Automated exposure control for dose reduction was used. FINDINGS: CHEST: The heart is normal size without pericardial effusion. Coronary vessel calcifications are present. Ectatic ascending aorta currently measured at 3.8 cm. Conventional arch vessel branching anatomy. No thoracic lymphadenopathy. Evaluation of the lungs shows mild centrilobular emphysema without consolidation or pleural effusion. Some strandy atelectasis or scarring at the medial lung bases. ABDOMEN: This is stable circumferential thickening distal esophagus. Liver, gallbladder, adrenal glands, kidneys, spleen, and pancreas appear within normal limits. Portal venous system is patent. No biliary ductal dilatation. No dilated small bowel, free fluid, or free air. Moderate stool burden. Some surgical material in the right lower quadrant suggesting prior appendectomy. No pericolonic inflammatory change. No mesenteric or retroperitoneal lymphadenopathy. Pelvis: Bladder is urine distended. Prostate gland measures 4.6 and is wide. No abnormal fluid collection in the pelvis or pelvic lymphadenopathy. Bones: Mild degenerative changes at the hips. Facet arthropathy lower lumbar spine. Endplate spondylosis mid to lower thoracic spine. No osseous destructive process. IMPRESSION: 1. STABLE MILD CIRCUMFERENTIAL WALL THICKENING DISTAL ESOPHAGUS SUGGESTING SITE OF TREATED DISEASE. 2. NO SUSPICIOUS MASS OR LYMPHADENOPATHY TO SUGGEST METASTATIC DISEASE. 3. COPD WITH MILD EMPHYSEMA.
== END | disposition home or self-care (01) ==
LOC: RADCTMAIN 09:32
PROVIDERS: ATTEND Internal Medicine Hematology & Oncology
DX: J44.9 Chronic obstructive pulmonary disease, unspecified (principal); K22.8 Other specified diseases of esophagus; C15.5 Malignant neoplasm of lower third of esophagus
CPT/HCPCS: 82565; 84520; 71260; 74177; 36415; Q9967 ×2

== ENCOUNTER → 2019-06-26 | Outpatient (CLI) | payer MEDICARE, OTHER ==
--- NOTE | 2019-06-26 11:35 | CT ---
EXAMINATION TYPE: CT ChestAbdPelvis w con DATE OF EXAM: 06/26/2019 COMPARISON: 03/30/2019 and 11/29/2018 HISTORY: 79-year-old male Esophageal cancer TECHNIQUE: Contiguous axial scanning of the chest, abdomen, and pelvis performed with IV Contrast, pa tient injected with 80 mL of Isovue 300. Delayed images through the kidneys were obtained. Coronal/sa gittal reconstructions performed. CT DLP: 1472 mGycm Automated exposure control for dose reduction was used. FINDINGS: CHEST: Heart normal size without pericardial effusion. Mild coronary vessel calcifications are present. Ectatic ascending aorta at 3.8 cm redemonstrated. Conventional arch vessel branching anatomy. Borderline enlarged caliber to the main right and left pulmonary arteries are 2.6 and 2.5 cm, respect ively, suggesting underlying pulmonary arterial hypertension. No thoracic lymphadenopathy by CT size criteria. Mild centrilobular emphysema redemonstrated. New focal spiculated subpleural densities anterior left upper lobe measuring up to 2.9 x 1.3 cm. New spiculated densities medial basilar right lower lobe measuring 2.5 x 1.3 cm and 1.4 x 1.2 cm. New irregular patchy subpleural density posterior left base measuring 3.5 x 1.6 cm. Tiny 3 mm peripheral right basilar pulmonary nodule axial image 50 was present in retrospect. No pleural effusion. ABDOMEN: Small hiatal hernia. Some residual muscular frontal thickening distal esophagus suggesting site of tr eated disease. Liver, gallbladder, adrenal glands, kidneys, spleen, and pancreas appear within normal limits. Portal venous system is patent. No biliary ductal dilatation. No dilated small bowel, free fluid, or free air. Moderate stool burden. Sigmoid diverticulosis. No pe ricolonic inflammatory change. Surgical clip right lower quadrant may relate to prior appendectomy. No mesenteric or retroperitoneal lymphadenopathy seen. Pelvis: Prostate gland measures 4.2 cm wide. Mild circumferential bladder wall thickening may relate to cysti tis or chronic bladder wall hypertrophy.. No abnormal fluid collection in the pelvis or pelvic lympha denopathy. Bones: Mild degenerative changes at the hips. Mild facet arthropathy lower lumbar spine. No osseous destruct kathleen process. IMPRESSION: 1. STABLE RESIDUAL MILD WALL THICKENING DISTAL ESOPHAGUS LIKELY RELATING TO SITE OF TREATED DISEASE. THERE IS AN ADJACENT SMALL HIATAL HERNIA. 2. NEW IRREGULAR FOCAL DENSITIES, ONE WITHIN THE LEFT UPPER LOBE (2.9 CM), 2 WITHIN THE RIGHT LOWER L OBE (2.5 AND 1.4 CM), AND ONE WITHIN THE LEFT BASE (3.5 CM). MULTIPLE INFECTIOUS/INFLAMMATORY FOCI AR E SUGGESTED GIVEN THE RAPID DEVELOPMENT IN 3 MONTHS. METASTATIC DISEASE IS CONSIDERED LESS LIKELY. CL OSE FOLLOW-UP AFTER ANY POTENTIAL TREATMENT IS RECOMMENDED. 3. NO SUSPICIOUS MASS OR LYMPHADENOPATHY TO SUGGEST METASTATIC DISEASE ELSEWHERE.
== END | disposition home or self-care (01) ==
LOC: RADCTMAIN 07:27
PROVIDERS: ATTEND Internal Medicine Hematology & Oncology
DX: C15.5 Malignant neoplasm of lower third of esophagus (principal); R91.8 Other nonspecific abnormal finding of lung field; K44.9 Diaphragmatic hernia without obstruction or gangrene
CPT/HCPCS: 82565; 84520; 71260; 74177; 36415; Q9967

== ENCOUNTER → 2019-08-13 | Outpatient (CLI) | payer MEDICARE, OTHER ==
--- NOTE | 2019-08-13 09:57 | CT ---
EXAMINATION TYPE: CT chest w con DATE OF EXAM: 08/13/2019 COMPARISON: 06/26/2019 HISTORY: Esophageal CA CT DLP: 465 mGycm, Automated exposure control for dose reduction was used. CONTRAST: Performed injected with 50 mL of Isovue 300. TECHNIQUE: Axial images were obtained at 5 mm thick sections. Reconstructed images are reviewed on [employer] computer in the coronal plane. FINDINGS: Portion of the thyroid visualized is normal. No suspicious lung nodules or focal infiltrates are present. Some mild streak opacities in the lingul a which may be related atelectasis. At the posterior right lung base small soft tissue density which has some spiculation on metformin do se. This area measures 0.9 x 2.5 cm. Series 4 image 50. This area is smaller than comparison. The are a of increased density within the posterior lateral left lung base, likewise, is smaller than the com parison. Streak opacity within the region of the mid left anterior lung currently measures 0.8 x 2.9 cm which is slightly smaller than comparison. Tiny nodule in the periphery of the right lung is less apparent than comparison No enlarged mediastinal or hilar adenopathy is evident. The ascending aorta diameter at the level o f the main pulmonary artery is 1.0 cm. The main pulmonary artery diameter at the bifurcation is 2.4 cm. The aorta tapers to the distal course. Limited CT sections are obtained through the upper abdomen. There is eccentric thickening of the distal esophagus which could be related to the patient's esophag eal cancer. Diffuse thickening of the midesophagus may be present below level of the aroldo. IMPRESSIONS: 1. Diminished size of lung window densities. Findings could be related to metastatic disease or infla mmatory changes. 2. Diffuse thickening of the mid to distal esophagus with some eccentric thickening of the distal eso phagus near the gastroesophageal junction. Findings could be related to the patient's esophageal canc er. 3. Aneurysmal dilatation measuring 4.0 cm of the ascending thoracic aorta.
== END | disposition home or self-care (01) ==
LOC: RADCTMAIN 08:13
PROVIDERS: ATTEND Internal Medicine Hematology & Oncology
DX: C15.5 Malignant neoplasm of lower third of esophagus (principal); I77.810 Thoracic aortic ectasia; I71.2 Thoracic aortic aneurysm, without rupture
CPT/HCPCS: 82565; 84520; 71260; 36415; Q9967

== ENCOUNTER → 2019-10-26 | Outpatient (CLI) | payer MEDICARE, OTHER ==
--- NOTE | 2019-10-26 11:00 | CT ---
EXAMINATION TYPE: CT chest abdomen wo/w con DATE OF EXAM: 10/26/2019 COMPARISON: 08/13/2019 HISTORY: 79-year-old male Malignant neoplasm of lower third of esophagus. TECHNIQUE: Contiguous axial scanning of the chest and abdomen before and after administration of 100 ml Isovue 300 IV contrast. Delayed images through the kidneys and coronal/sagittal reconstructions p erformed. CT DLP: 1178.3 mGycm Automated exposure control for dose reduction was used. FINDINGS: CHEST: Heart normal size without pericardial effusion. Mild LAD calcifications are present. Borderline ectasia ascending aorta 3.5 cm. Mild arch calcifications with conventional branching anato my. Trace bilateral gynecomastia. Moderate circumferential wall thickening of the lower 4 cm of the thoracic esophagus. No thoracic lymphadenopathy by CT size criteria. Strandy atelectasis within the lingula and both posterior lung bases. 3 mm peripheral right basilar pulmonary nodule, axial image 49. Mild centrilobular emphysema and mild bronchial wall thickening. No consolidation or pleural effusion. Curvilinear density remains at the posterior right base at the site of previous thickening. Similar findings along the anterior left mid lung. No residual nodularity is seen at these 2 sites. ABDOMEN: No focal liver lesion or biliary ductal dilatation. Portal venous system is patent. Gallbladder, adrenal glands, kidneys, spleen, and pancreas appear within normal limits. No dilated small bowel, free fluid, or free air. Moderate colonic stool. No pericolonic inflammatory change. Some surgical material right lower quadra nt likely relating to prior appendectomy. No mesenteric or retroperitoneal lymphadenopathy. Pelvis is not imaged. BONES: Mild facet arthropathy lower lumbar spine. Mild degenerative disc disease mid thoracic spine. No osse ous destructive process. IMPRESSION: 1. MODERATE CIRCUMFERENTIAL WALL THICKENING OF THE LOWER 4 CM OF THE THORACIC ESOPHAGUS CORRESPONDING TO THE SITE OF PATIENT'S KNOWN NEOPLASM. RESIDUAL DISEASE OR POSTTREATMENT CHANGE ARE SUGGESTED. NO PROGRESSIVE THICKENING FROM 08/13/2019. 2. TINY 3 MM PERIPHERAL RIGHT BASILAR PULMONARY NODULE IS UNCHANGED. SOME CURVILINEAR THICKENING POST ERIOR RIGHT BASE IS IMPROVED FROM 08/13/2019 AND COULD REPRESENT RESIDUAL SCARRING. SUSPECT ADDITIONA L RESIDUAL SCARRING ANTERIOR LEFT MIDLUNG. 3. OTHERWISE, NO FINDINGS TO SUGGEST METASTATIC DISEASE IN THE CHEST OR ABDOMEN. 4. COPD WITH MILD EMPHYSEMA. MODERATE STOOL BURDEN.
== END | disposition home or self-care (01) ==
LOC: RADCTMAIN 09:33
PROVIDERS: ATTEND Radiology Radiation Oncology
DX: J43.9 Emphysema, unspecified (principal); C15.5 Malignant neoplasm of lower third of esophagus; K22.70 Barrett's esophagus without dysplasia; Z92.21 Personal history of antineoplastic chemotherapy
CPT/HCPCS: 82565; 84520; 71270; 74170; 36415; Q9967 ×2

== ENCOUNTER 2019-12-14 11:28 | Day surgery (SDC) | payer MEDICARE, OTHER ==
[2019-12-11 08:32] VITALS: BMI 26.2
[2019-12-14] MEDS ORDERED: LIDOCAINE 1% INJ 10MG/ML (20 ML MDV) ONE (13:28)
[2019-12-14] MEDS ORDERED: PROPOFOL 10 MG/ML 20 ML VIAL IV ONE (13:28)
--- NOTE | 2019-12-14 13:53 | P.PCN ---
Date of Procedure: 12/14/19 Description of Procedure: BRIEF HISTORY: Patient is a 79-year-old male with a prior history of Patterson's esophagus and esophageal mass that showed invasive moderately differentiated adenocarcinoma in February 2018. The patient completed treatment with radiation and chemotherapy but declined surgical intervention. He was seen in follow-up in 12/2018 at which time he underwent EGD significant for ulcerated area the segment of Patterson's esophagus corresponding to esophageal mass previously treated with multiple biopsies obtained and significant only for ulcerated squamo glandular mucosa with inflammation, fibrosis and reactive changes which was negative for malignancy. PROCEDURE PERFORMED: Esophagogastroduodenoscopy with biopsy. PREOPERATIVE DIAGNOSIS: Esophageal cancer. ESTIMATED BLOOD LOSS: Minimal. IV sedation per anesthesia. PROCEDURE: After informed consent was obtained, the patient was brought into the endoscopy unit. IV sedation was administered by Anesthesia under continuous monitoring. Initially the Olympus GIF-190 video endoscope was inserted into the mouth. Esophagus intubated without any difficulty. It was gradually advanced into the stomach and duodenum and carefully examined. The bulb and the second part of the duodenum appeared normal. The scope at this time was withdrawn to the stomach, adequately insufflated with air, and upon careful examination, mucosa of the antrum, body, cardia and the fundus appeared normal. The scope was then withdra wn into the esophagus. The GE junction was located at 40 cm from the incisors with a 2 cm hiatal hernia noted. Ulcerated fibrosed tissue noted in this segment of Patterson's esophagus starting at 35 cm from the incisors to the GE junction at 40 cm from the incisors in the area of previous esophageal cancer. Multiple biopsies were taken of this region. Scope was withdrawn and the patient tolerated the procedure well.. IMPRESSION: 1. Ulcerated, fibrosed area in the distal esophagus in the area of prior esophageal mass/adenocarcinoma which was previously treated, this was vigorously biopsied. 2. Small hiatal hernia.. RECOMMENDATIONS: The findings of this examination were discussed with the patient in his family. Okay to resume diet. Okay to resume medications. Await pathology from biopsies. Follow up with oncology as previously scheduled.
[2019-12-14 14:26] VITALS: BP 166/88; PULSE 69; RESP 18
== END 2019-12-14 14:51 | disposition home or self-care (01) ==
LOC: ORWHC2ENDO 11:28
PROVIDERS: ATTEND Internal Medicine
DX: C7A.1 Malignant poorly differentiated neuroendocrine tumors (principal); K22.70 Barrett's esophagus without dysplasia; K44.9 Diaphragmatic hernia without obstruction or gangrene; E78.5 Hyperlipidemia, unspecified; E07.9 Disorder of thyroid, unspecified; K21.9 Gastro-esophageal reflux disease without esophagitis; Z87.891 Personal history of nicotine dependence; Z79.890 Hormone replacement therapy; Z79.82 Long term (current) use of aspirin; Z90.49 Acquired absence of other specified parts of digestive tract; Z98.890 Other specified postprocedural states; Z98.49 Cataract extraction status, unspecified eye; Z97.2 Presence of dental prosthetic device (complete) (partial); Z92.21 Personal history of antineoplastic chemotherapy; Z92.3 Personal history of irradiation
CPT/HCPCS: 88305; 88342; 88341; 43239; J2001; J2704

== ENCOUNTER → 2020-02-05 | Outpatient (CLI) | payer MEDICARE, OTHER ==
--- NOTE | 2020-02-08 11:41 | PE ---
Nuclear medicine PET/CT HISTORY: Esophageal carcinoma, subsequent Patient received 12.9 mCi F-18 FDG intravenously in delayed scanning was performed from the skull bas e to the mid thighs. Localization and attenuation correction CT scan was performed. Correlation to prior nuclear medicine PET/CT 11/29/2018, CT chest 10/26/2019 Neck and chest: The abnormal activity seen in the distal thoracic esophagus with circumferential wall thickening is again noted and shows an interval increase in activity as compared to prior exam, ther e is hypermetabolic uptake present SUV 9.7. No mediastinal, axillary, or hilar adenopathy. There is a new nodule, axial image #100 with some associated mild uptake present measuring approximately 14 mm in size, SUV only 1.7 in the right lung. ABDOMEN: There is no evident liver mass or retroperitoneal adenopathy. No ascites or suspicious hyper metabolic uptake. Osseous structures are stable. IMPRESSION: There is abnormal uptake and thickening of the distal esophagus with new pulmonary nodule with mild uptake.
== END | disposition home or self-care (01) ==
LOC: RADPETMAIN 08:26
PROVIDERS: ATTEND Internal Medicine Hematology & Oncology
DX: C15.5 Malignant neoplasm of lower third of esophagus (principal); R91.1 Solitary pulmonary nodule
CPT/HCPCS: 78815; A9552

== ENCOUNTER → 2020-04-21 | Outpatient (CLI) | payer MEDICARE, OTHER ==
[2020-04-21 09:02] LABS: African American GFR (CKD) >90 (>60 ml/min/1.73 sqM); Blood Urea Nitrogen 16 mg/dL (9-20); Non-African American GFR(CKD) 87 (>60 ml/min/1.73 sqM)
--- NOTE | 2020-04-21 11:25 | CT ---
EXAMINATION TYPE: CT ChestAbdPelvis w con DATE OF EXAM: 04/21/2020 COMPARISON: 10/26/2019 HISTORY: FOLLOW UP FOR ESOPHAGEAL CA CT DLP: 803.4 mGycm CONTRAST: CT scan of the chest, abdomen and pelvis is performed with Oral Contrast and with IV Contrast, patien t injected with 100 mL of Isovue 300. CT Chest: LUNGS: The lungs are clear and free of infiltrate or atelectasis. There is a new pulmonary nodule tyson suring 1.2 cm within the right upper lobe image 38. 3 mm pleural-based nodule left lower lobe image 3 0. Right basilar atelectasis and/or parenchymal scar. No pleural effusion or CT evidence of interstit ial lung disease. MEDIASTINUM: Distal esophageal wall thickening and a hiatal hernia. Thoracic aorta is of normal adam alex. The heart is not enlarged. No evidence for mediastinal mass or adenopathy. HILAR STRUCTURES: No evidence for mass. No hilar adenopathy is appreciated. OTHER: No significant abnormality. CONTRAST CT ABDOMEN AND PELVIS FINDINGS: LIVER/GB: No calcified gallstones. No space occupying hepatic lesion. Biliary tree is of normal ca liber. PANCREAS: No inflammation. No distinct mass. SPLEEN: No splenic enlargement. No lesion seen. ADRENALS: No nodule. No thickening. KIDNEYS/BLADDER: No hydronephrosis. No nephrolithiasis. No disctinct renal mass. BOWEL: Normal appendix. Normal bowel caliber. No inflammation. GENITAL ORGANS: No gross abnormality. LYMPH NODES: No greater than 1cm abdominal or pelvic lymph nodes are appreciated. AORTA: No significant abnormality. OSSEOUS STRUCTURES: No significant abnormality is seen. OTHER: No significant additional abnormality is seen. IMPRESSION: 1. Persistent thickening of the distal esophagus and associated hiatal hernia. Findings are compatibl e with the provided history. 2. New 1.2 cm pulmonary nodule right upper lobe suspicious for metastatic lesion. There is also a new 3 mm pleural-based nodule as discussed.
== END | disposition home or self-care (01) ==
LOC: RADCTMAIN 08:16
PROVIDERS: ATTEND Internal Medicine Hematology & Oncology
DX: K22.8 Other specified diseases of esophagus (principal); K44.9 Diaphragmatic hernia without obstruction or gangrene; R91.1 Solitary pulmonary nodule; C15.5 Malignant neoplasm of lower third of esophagus
CPT/HCPCS: 82565; 84520; 71260; 74177; 36415; Q9967

== ENCOUNTER 2020-04-25 08:56 | Day surgery (SDC) | payer MEDICARE, OTHER ==
[2020-04-20 11:01] VITALS: BMI 26.0
[~2020-04-25 08:56] MED LIST changes: -LIDOCAINE 1% 20 ML VIAL (10MG/ML) FOR IV START INTRADERMA PRN
[2020-04-25 09:24] VITALS: TEMP 97.4
[2020-04-25] MEDS ORDERED: PROPOFOL 10 MG/ML 20 ML VIAL IV ONE (10:30)
[2020-04-25] MEDS ORDERED: LIDOCAINE 1% INJ 10MG/ML (20 ML MDV) ONE (10:30)
[2020-04-25 10:53] VITALS: RESP 16
--- NOTE | 2020-04-25 10:54 | P.PCN ---
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 The patient completed treatment with radiation and chemotherapy but declined surgical intervention. He was seen in follow-up in 12/2018 at which time he underwent EGD significant for ulcerated area the segment of Patterson's esophagus corresponding to esophageal mass previously treated with multiple biopsies obtained and significant only for ulcerated squamo glandular mucosa with inflammation, fibrosis and reactive changes which was negative for malignancy. However repeat EGD at the beginning of 2019 with biopsies of the same ulcerated, fibrosed area in the distal esophagus was significant for recurrence of the malignancy. Subsequently he is undergone treatment with chemotherapy with the oncology service and presents back for assessment. PROCEDURE PERFORMED: Esophagogastroduodenoscopy with biopsy. PREOPERATIVE DIAGNOSIS: Esophageal cancer. ESTIMATED BLOOD LOSS: Minimal. IV sedation per anesthesia. PROCEDURE: After informed consent was obtained, the patient was brought into the endoscopy unit. IV sedation was administered by Anesthesia under continuous monitoring. Initially the Olympus GIF-190 video endoscope was inserted into the mouth. Esophagus intubated without any difficulty. It was gradually advanced into the stomach and duodenum and carefully examined. The bulb and the second part of the duodenum appeared normal. The scope at this time was withdrawn to the stomach, adequately insufflated with air, and upon careful examination, mucosa of the antrum, body, cardia and the fundus appeared normal. The scope was then withdrawn into the esophagus. The GE junction was located at 40 cm from the incisors with a 2 cm hiatal hernia noted. Ulcerated, fibrosed and friable tissue noted to extend from 35 cm from the incisors to the GE junction at 40 cm from the incisors in the area of prior biopsies which were positive for recurrence of the patient's malignancy. Biopsies were again taken. The remaining esophagus appeared normal. The patient tolerated the procedure well. IMPRESSION: 1. Esophageal cancer. 3. 5 cm segment of ulcerated, fibrosed area in the distal esophagus in the area of esophageal cancer which appears similar to last EGD, however tissue was extremely friable compared to prior scope. Biopsies were taken. 2. Small hiatal hernia. RECOMMENDATIONS: The findings of this examination were discussed with the patient in his girlfriend. Okay to resume soft diet. Okay to resume medications. Await pathology from biopsies. Patient is scheduled to follow up with Dr. Meier of the oncology service. If patient begins to have progressive esophageal dysphagia and PEG tube is required consideration would be for a surgically placed feeding tube versus referral to tertiary center for IR guided feeding tube.
[2020-04-25 11:09] VITALS: BP 102/62; PULSE 78
== END 2020-04-25 11:51 | disposition home or self-care (01) ==
LOC: ORWHC2ENDO 08:56
PROVIDERS: ATTEND Internal Medicine
DX: C15.9 Malignant neoplasm of esophagus, unspecified (principal); K44.9 Diaphragmatic hernia without obstruction or gangrene; E78.5 Hyperlipidemia, unspecified; E07.9 Disorder of thyroid, unspecified; Z92.3 Personal history of irradiation; Z92.21 Personal history of antineoplastic chemotherapy; Z87.891 Personal history of nicotine dependence; Z79.890 Hormone replacement therapy; Z90.49 Acquired absence of other specified parts of digestive tract; Z98.890 Other specified postprocedural states; Z87.19 Personal history of other diseases of the digestive system; Z98.49 Cataract extraction status, unspecified eye; Z97.2 Presence of dental prosthetic device (complete) (partial); Z85.828 Personal history of other malignant neoplasm of skin
CPT/HCPCS: 88305; 43239; J2001; J2704

== ENCOUNTER 2020-05-25 10:25 | Emergency (ER) | payer MEDICARE, OTHER ==
[2020-05-25 10:35] VITALS: RESP 18
--- NOTE | 2020-05-25 10:55 | ED ---
ENT HPI - General Chief complaint: ENT Stated complaint: post chemo sensation in throat Time Seen by Provider: 05/25/20 10:38 Source: patient, RN notes reviewed, old records reviewed Mode of arrival: ambulatory Limitations: no limitations - History of Present Illness Initial comments: Gerard is an 80-year-old male with a known history of esophageal cancer. He presents emergency department today with progressive dysphagia and occasional regurgitation with eating soft foods after he had an upper GI scope done by Dr. Kuo on April 25. Patient states that it seems like food gets caught in the upper portion of his throat and esophagus. He states that he is able to tolerate liquids and tries to keep his calories up by drinking ensure in juices. He states he has no difficulty with this. He states that eating some soft foods becomes more difficult. He states he has had some normal stools despite not eating much and states that he has been urinating well. He states is currently receiving no treatment for the esophageal cancer and reportedly was told he has 3-6 months to live. He states that he has no significant pain at this time. - Related Data Home Medications Medication Instructions Recorded Confirmed Levothyroxine Sodium [Synthroid] 25 mcg PO DAILY 05/25/16 05/25/20 Omeprazole 20 mg PO BID 05/25/20 05/25/20 Allergies Allergy/AdvReac Type Severity Reaction Status Date / Time No Known Allergies Allergy Verified 05/25/20 11:31 Review of Systems ROS Statement: Those systems with pertinent positive or pertinent negative responses have been documented in the HPI. ROS Other: All systems not noted in ROS Statement are negative. Past Medical History Past Medical History: Cancer, GERD/Reflux, GI Bleed, Hyperlipidemia, Thyroid Disorder Additional Past Medical History / Comment(s): skin cancer, passed out without known cause 2017, esophageal cancer 2019 with radiation and chemotherapy . History of Any Multi-Drug Resistant Organisms: None Reported Past Surgical History: Appendectomy, Hernia Repair Additional Past Surgical History / Comment(s): Hemorrhoidectomy. [facility]. LASER RT LEG VEINS, cataract surg., EGD Past Anesthesia/Blood Transfusion Reactions: No Reported Reaction Additional Past Anesthesia/Blood Transfusion Reaction / Comment(s): STATES THEY USE A SMALL SCOPE. Past Psychological History: No Psychological Hx Reported Past Alcohol Use History: Occasional Past Drug Use History: None Reported - Past Family History Mother Family Medical History: Unable to Obtain Additional Family Medical History / Comment(s): pt. adopted General Exam - General Exam Comments Initial Comments: 80-year-old male. Alert and oriented. No distress. Limitations: no limitations General appearance: alert, in no apparent distress Head exam: Present: atraumatic, normocephalic, normal inspection Eye exam: Present: normal appearance, PERRL, EOMI. Absent: scleral icterus, conjunctival injection, periorbital swelling ENT exam: Present: normal exam, mucous membranes moist Neck exam: Present: normal inspection. Absent: tenderness, meningismus, lymphadenopathy Respiratory exam: Present: normal lung sounds bilaterally. Absent: respiratory distress, wheezes, rales, rhonchi, stridor Cardiovascular Exam: Present: regular rate, normal rhythm, normal heart sounds. Absent: systolic murmur, diastolic murmur, rubs, gallop, clicks GI/Abdominal exam: Present: soft, normal bowel sounds. Absent: distended, tenderness, guarding, rebound, rigid Extremities exam: Present: normal inspection, full ROM, normal capillary refill. Absent: tenderness, pedal edema, joint swelling, calf tenderness Back exam: Present: normal inspection Neurological exam: Present: alert, oriented X3, CN II-XII intact Psychiatric exam: Present: normal affect, normal mood Skin exam: Present: warm, dry, intact, normal color. Absent: rash Course Vital Signs 05/25/20 05/25/20 10:31 12:12 Temperature 97.9 F 97.7 F Pulse Rate 91 79 Respiratory 18 18 Rate Blood Pressure 128/81 97/66 O2 Sat by Pulse 97 98 Oximetry Medical Decision Making - Medical Decision Making 80-year-old male presents with 1 month of feeling that something is stuck in his throat after having an EGD. He has known history of esophageal cancer. He states that he is able to tolerate liquids but occasionally will have a difficult time swallowing softer foods and has had some episodes of regurgitation. Patient denies any change in urinary habits and still reports that he is maintaining his hydration with drinking liquids only. Patient states that he was told he has 3-6 months to live. He states he wants no further testing at this time to ensure that there is nothing blocking his airway. He is breathing well. He is able to tolerate drinking water and emergency department with no vomiting. Lungs are clear to auscultation. I did offer the Patient further treatment and states he prefers just go home at this time. I stated. It developed difficulty with swallowing liquids and unable to keep those down Patient will need to return to the ER for possible PEG tube placement. - Radiology Data Radiology results: report reviewed No suspicious prevertebral soft tissue swelling. No suspicious tearing of the subglottic airway on frontal view. Oral and pharyngeal and hypopharyngeal airways are patent. Chest x-ray shows chronic changes without a new acute pulmonary process. Findings greatest recently getting her level treatment for known for esophageal cancer. Stable just over 1 cm right middle lobe nodules concerning for metastatic disease and due from older CTs and requires nonemergent follow-up. The cardiac silhouette size remains normal. Multilevel spurring and spine. Disposition Clinical Impression: Esophageal mass, Dysphagia Disposition: HOME SELF-CARE Condition: Good Instructions (If sedation given, give patient instructions): Dysphagia (ED) Additional Instructions: Please return to ED if severe difficulty with swallowing any liquids or you start to vomit more please return to the ER for reevaluation. If that will be the case, he may need to have a PEG tube placed to supplement your intake. Return to emergency department if any alarming signs or symptoms occur. Follow up with PCP. Is patient prescribed a controlled substance at d/c from ED?: No Referrals: Lora Holden MD [Primary Care Provider] - 1-2 days Time of Disposition: 11:51
--- NOTE | 2020-05-25 11:26 | XR ---
EXAMINATION TYPE: XR chest 2V DATE OF EXAM: 05/25/2020 COMPARISON: CT April 21, 2020 and older CTs. Prior chest x-ray August 16, 2015 HISTORY: Dysphasia. History of esophageal cancer. TECHNIQUE: Frontal and lateral views of the chest are obtained. FINDINGS: There is chronic parenchymal change without suspicious new focal air space opacity, pleural effusion, or pneumothorax seen. Findings greatest in the lingula dick r the level of treatment for known esophageal cancer. Stable just over 1 cm right middle lobe nodule is concerning for metastatic disease and new from older CTs and requires nonemergent follow-up. The c ardiac silhouette size remains within normal limits with atherosclerotic change in the aortic knob. M ultilevel spurring in the spine. IMPRESSION: Chronic changes without new acute pulmonary process.
--- NOTE | 2020-05-25 11:41 | XR ---
EXAMINATION TYPE: XR soft tissue neck DATE OF EXAM: 05/25/2020 COMPARISON: NONE HISTORY: Dysphasia. History of esophageal cancer. TECHNIQUE: 2 view soft tissue neck. FINDINGS: No suspicious prevertebral soft tissue swelling. No suspicious narrowing of the subglottic airway on the frontal view. Oral pharyngeal and hypopharyngeal airways are patent. IMPRESSION: As above.
[2020-05-25 12:13] VITALS: BP 97/66; PULSE 79; TEMP 97.7
== END 2020-05-25 12:11 | disposition home or self-care (01) ==
LOC: EC 10:25
DX: C15.9 Malignant neoplasm of esophagus, unspecified (principal); E07.9 Disorder of thyroid, unspecified; K21.9 Gastro-esophageal reflux disease without esophagitis; Z79.890 Hormone replacement therapy; Z79.899 Other long term (current) drug therapy; Z85.828 Personal history of other malignant neoplasm of skin; Z85.01 Personal history of malignant neoplasm of esophagus; Z92.3 Personal history of irradiation; Z92.21 Personal history of antineoplastic chemotherapy
CPT/HCPCS: 70360; 71046; 99284

== ENCOUNTER → 2020-06-09 | Outpatient (CLI) | payer MEDICARE, OTHER ==
--- NOTE | 2020-06-09 10:00 | CT ---
EXAMINATION TYPE: CT ChestAbdPelvis w con DATE OF EXAM: 06/09/2020 COMPARISON: 04/21/2020, 02/05/2020, 06/26/2019 HISTORY: 80-year-old male Esophageal cancer, observe for METS (endocrine tumors) TECHNIQUE: Contiguous axial scanning of the chest, abdomen, and pelvis performed with IV Contrast, pa tient injected with 50 mL of Isovue 300. Delayed images through the kidneys were obtained. Coronal/sa gittal reconstructions performed. CT DLP: 924.80 mGycm Automated exposure control for dose reduction was used. FINDINGS: CHEST: Heart normal size without pericardial effusion. Focal LAD calcifications are noted. No gross lymphadenopathy by CT size criteria. Upper ascending thoracic aorta is ectatic at 3.7 cm. Conventional arch vessel branching anatomy. Prominent fluid mild to moderately distending the thoracic esophagus. There may be a greater degree of wall thickening of the distal third thoracic esophagus causing a rel ative obstruction to the passage of ingested material. Refer to sagittal image 59 for a good represen tative image. The lobulated right mid lung nodule shows increasing size currently measuring 1.6 x 1.1 cm versus 1.2 x 0.6 cm, previously. There is mild centrilobular emphysema. Strandy atelectasis or scarring at the posterior right base. New bilobed 8 x 5 mm right middle lobe pulmonary nodule, axial image 38. ABDOMEN: No focal liver lesion seen or biliary ductal dilatation. Portal venous system is patent. Gallbladder, adrenal glands, kidneys, spleen, and pancreas show no gross abnormality. No dilated small bowel, free fluid, or free air. Some surgical material at the right lower quadrant. Scattered mild to moderate stool. Sigmoid diverti culosis. No pericolonic inflammatory change. No mesenteric or retroperitoneal lymphadenopathy seen. PELVIS: Some excreted contrast is noted layering within the nondistended bladder. No abnormal fluid collectio n in the pelvis or pelvic lymphadenopathy. BONES: Degenerative changes at the hips and lower lumbar spine. Endplate spondylosis midthoracic spine. No o sseous destructive process. IMPRESSION: 1. INCREASING SOFT TISSUE THICKENING ALONG THE DISTAL THIRD ESOPHAGUS AT THE SITE OF PATIENT'S KNOWN ESOPHAGEAL CARCINOMA. THERE IS NOW A FLUID COLUMN WITHIN THE MORE PROXIMAL ESOPHAGUS SUGGESTING THE D EVELOPMENT OF A RELATIVE OBSTRUCTION TO THE PASSAGE OF INGESTED MATERIAL. LOCAL RECURRENCE SHOULD BE CONSIDERED. 2. INCREASING SIZE OF THE RIGHT MID LUNG PULMONARY NODULE NOW AT 1.6 X 1.1 CM (VERSUS 1.2 X 0.6 CM, P REVIOUSLY). A BILOBED RIGHT MIDDLE LOBE PULMONARY NODULE IS NEW AT 8 X 5 MM. BOTH ARE SUSPICIOUS FOR METASTATIC DISEASE. 3. INCIDENTAL: COPD WITH MILD EMPHYSEMA. FOCAL LAD CALCIFICATIONS. SIGMOID DIVERTICULOSIS.
--- NOTE | 2020-06-09 10:50 | CT ---
EXAMINATION TYPE: CT soft tissue neck w con DATE OF EXAM: 06/09/2020 COMPARISON: 08/18/2015 HISTORY: 80-year-old male Esophageal cancer (endocrine tumors), observe for METS TECHNIQUE: Contiguous axial scanning of the soft tissues of the neck performed with IV Contrast, yonny ent injected with 50 mL of Isovue 300. Coronal/sagittal reconstructions performed. CT DLP: 306.8 mGycm Automated exposure control for dose reduction was used. FINDINGS: Fluid within the thoracic esophagus with mild esophageal distention. Thyroid gland appears slightly small and atrophic. Moderate atherosclerotic calcifications left carot id bifurcation. Parotid and salivary glands appear satisfactory. Visualized intracranial structures, orbits and globes, and mastoid air cells appear clear. Mild lobul ated mucosal thickening floors of the maxillary sinuses. The nasopharynx and oropharynx appears clear. Nonspecific small focus of calcification in the prevertebral soft tissues at the C1-C2 junction. No r etropharyngeal effusion. Calcification is likely chronic and of questionable clinical significance. Epiglottis within normal limits. Oropharynx is clear. The glottic and subglottic airway appears patent. No cervical lymphadenopathy is seen. No osseous destructive process identified. IMPRESSION: 1. FLUID MILDLY DISTENDING THE THORACIC ESOPHAGUS. CORRELATE FOR A RELATIVE DISTAL ESOPHAGEAL OBSTRUC TION. 2. NO SUSPICIOUS CERVICAL LYMPHADENOPATHY OR NECK MASS IDENTIFIED.
== END | disposition home or self-care (01) ==
LOC: RADCTMAIN 06:30
PROVIDERS: ATTEND Internal Medicine Hematology & Oncology
DX: Z03.89 Encounter for observation for other suspected diseases and conditions ruled out (principal); C7A.1 Malignant poorly differentiated neuroendocrine tumors; J43.9 Emphysema, unspecified; I25.10 Atherosclerotic heart disease of native coronary artery without angina pectoris; K57.30 Diverticulosis of large intestine without perforation or abscess without bleeding; R91.8 Other nonspecific abnormal finding of lung field
CPT/HCPCS: 82565; 84520; 70491; 71260; 74177; 36415; Q9967

== ENCOUNTER 2020-06-21 14:44 | Emergency (ER) | payer MEDICARE, OTHER ==
[2020-06-21] MEDS ORDERED: SODIUM CHLORIDE 0.9% 1,000 ML IV STA ×2 (15:00)
--- NOTE | 2020-06-21 15:01 | ED ---
Weakness HPI - General Chief complaint: Weakness Stated complaint: Dehydrated,sent by dr Time Seen by Provider: 06/21/20 15:00 Source: patient, RN notes reviewed, old records reviewed Mode of arrival: ambulatory Limitations: no limitations - History of Present Illness Initial comments: This is an 80-year-old male DF presents today for evaluation regards to inability to eat or drink significant weight loss. Patient has history of esophageal cancer and is unable to eat or drink currently. Patient today patient will history or sick contacts no pain patient was seen by his oncologist and sent ER for further evaluation management MD Complaint: generalized weakness, lack of energy -: days(s) Location: generalized Severity: severe Severity scale (1-10): 8 Consistency: constant Improves with: none Worsens with: other Context: history of similar Associated Symptoms: denies other symptoms - Related Data Home Medications Medication Instructions Recorded Confirmed No Known Home Medications 06/21/20 06/21/20 Allergies Allergy/AdvReac Type Severity Reaction Status Date / Time No Known Allergies Allergy Verified 06/21/20 16:03 Review of Systems ROS Statement: Those systems with pertinent positive or pertinent negative responses have been documented in the HPI. ROS Other: All systems not noted in ROS Statement are negative. Past Medical History Past Medical History: Cancer, GERD/Reflux, GI Bleed, Hyperlipidemia, Thyroid Disorder Additional Past Medical History / Comment(s): skin cancer, passed out without known cause 2017, esophageal cancer 2019 with radiation and chemotherapy . History of Any Multi-Drug Resistant Organisms: None Reported Past Surgical History: Appendectomy, Hernia Repair Additional Past Surgical History / Comment(s): Hemorrhoidectomy. [facility]. LASER RT LEG VEINS, cataract surg., EGD Past Anesthesia/Blood Transfusion Reactions: No Reported Reaction Additional Past Anesthesia/Blood Transfusion Reaction / Comment(s): STATES THEY USE A SMALL SCOPE. Past Psychological History: No Psychological Hx Reported Smoking Status: Former smoker Past Alcohol Use History: Occasional Past Drug Use History: None Reported - Past Family History Mother Family Medical History: Unable to Obtain Additional Family Medical History / Comment(s): pt. adopted General Exam Limitations: no limitations General appearance: alert, in no apparent distress Head exam: Present: atraumatic, normocephalic, normal inspection Eye exam: Present: normal appearance, PERRL, EOMI. Absent: scleral icterus, conjunctival injection, periorbital swelling ENT exam: Present: normal exam, mucous membranes moist Neck exam: Present: normal inspection. Absent: tenderness, meningismus, lymphadenopathy Respiratory exam: Present: normal lung sounds bilaterally. Absent: respiratory distress, wheezes, rales, rhonchi, stridor Cardiovascular Exam: Present: regular rate, normal rhythm, normal heart sounds. Absent: systolic murmur, diastolic murmur, rubs, gallop, clicks GI/Abdominal exam: Present: soft, normal bowel sounds. Absent: distended, tenderness, guarding, rebound, rigid Extremities exam: Present: normal inspection, full ROM, normal capillary refill. Absent: tenderness, pedal edema, joint swelling, calf tenderness Back exam: Present: normal inspection Neurological exam: Present: alert, oriented X3, CN II-XII intact Psychiatric exam: Present: normal affect, normal mood Skin exam: Present: warm, dry, intact, normal color. Absent: rash Course Vital Signs 06/21/20 14:53 Temperature 97.8 F Pulse Rate 106 H Respiratory 20 Rate Blood Pressure 102/68 O2 Sat by Pulse 96 Oximetry - Reevaluation(s) Reevaluation #1: 06/21/20 16:03 Medical records reviewed Reevaluation #2: 06/21/20 16:03 Patient feeling better with hydration - Consultations Consultation #1: Spoke with Dr. Grimaldo regarding transferred to [facility] EKG Findings - EKG Comments: EKG Findings:: EKG sinus rhythm 89 OH 154 QRS 94 QTC 455 Medical Decision Making - Medical Decision Making 80 male to be transferred to [facility] for evaluation of altered less than eating, patient is unable to eat or drink - Lab Data Result diagrams: 06/21/20 15:18 06/21/20 15:18 Lab Results 06/21/20 06/21/20 06/21/20 Range/Units 15:18 15:18 15:18 WBC 7.2 (3.8-10.6) k/uL RBC 5.00 (4.30-5.90) m/uL Hgb 14.7 (13.0-17.5) gm/dL Hct 45.9 (39.0-53.0) % MCV 91.9 (80.0-100.0) fL MCH 29.3 (25.0-35.0) pg MCHC 31.9 (31.0-37.0) g/dL RDW 14.4 (11.5-15.5) % Plt Count 188 (150-450) k/uL Neutrophils % 79 % Lymphocytes % 13 % Monocytes % 5 % Eosinophils % 1 % Basophils % 1 % Neutrophils # 5.7 (1.3-7.7) k/uL Lymphocytes # 1.0 (1.0-4.8) k/uL Monocytes # 0.4 (0-1.0) k/uL Eosinophils # 0.0 (0-0.7) k/uL Basophils # 0.0 (0-0.2) k/uL PT 9.9 (9.0-12.0) sec INR 0.9 (<1.2) APTT 22.7 (22.0-30.0) sec Sodium 145 (137-145) mmol/L Potassium 4.2 (3.5-5.1) mmol/L Chloride 107 (98-107) mmol/L Carbon Dioxide 24 (22-30) mmol/L Anion Gap 14 mmol/L BUN 28 H (9-20) mg/dL Creatinine 1.32 H (0.66-1.25) mg/dL Est GFR (CKD-EPI)AfAm 59 (>60 ml/min/1.73 sqM) Est GFR (CKD-EPI)NonAf 51 (>60 ml/min/1.73 sqM) Glucose 90 (74-99) mg/dL Plasma Lactic Acid Jeremiah (0.7-2.0) mmol/L Calcium 10.1 (8.4-10.2) mg/dL Phosphorus 4.6 H (2.5-4.5) mg/dL Magnesium 2.3 (1.6-2.3) mg/dL Total Bilirubin 2.3 H (0.2-1.3) mg/dL AST 47 (17-59) U/L ALT 46 (4-49) U/L Alkaline Phosphatase 80 (38-126) U/L Creatine Kinase 93 (55-170) U/L Troponin I (0.000-0.034) ng/mL Total Protein 7.7 (6.3-8.2) g/dL Albumin 4.8 (3.5-5.0) g/dL 06/21/20 06/21/20 Range/Units 15:18 15:18 WBC (3.8-10.6) k/uL RBC (4.30-5.90) m/uL Hgb (13.0-17.5) gm/dL Hct (39.0-53.0) % MCV (80.0-100.0) fL MCH (25.0-35.0) pg MCHC (31.0-37.0) g/dL RDW (11.5-15.5) % Plt Count (150-450) k/uL Neutrophils % % Lymphocytes % % Monocytes % % Eosinophils % % Basophils % % Neutrophils # (1.3-7.7) k/uL Lymphocytes # (1.0-4.8) k/uL Monocytes # (0-1.0) k/uL Eosinophils # (0-0.7) k/uL Basophils # (0-0.2) k/uL PT (9.0-12.0) sec INR (<1.2) APTT (22.0-30.0) sec Sodium (137-145) mmol/L Potassium (3.5-5.1) mmol/L Chloride (98-107) mmol/L Carbon Dioxide (22-30) mmol/L Anion Gap mmol/L BUN (9-20) mg/dL Creatinine (0.66-1.25) mg/dL Est GFR (CKD-EPI)AfAm (>60 ml/min/1.73 sqM) Est GFR (CKD-EPI)NonAf (>60 ml/min/1.73 sqM) Glucose (74-99) mg/dL Plasma Lactic Acid Jeremiah 1.5 (0.7-2.0) mmol/L Calcium (8.4-10.2) mg/dL Phosphorus (2.5-4.5) mg/dL Magnesium (1.6-2.3) mg/dL Total Bilirubin (0.2-1.3) mg/dL AST (17-59) U/L ALT (4-49) U/L Alkaline Phosphatase (38-126) U/L Creatine Kinase (55-170) U/L Troponin I <0.012 (0.000-0.034) ng/mL Total Protein (6.3-8.2) g/dL Albumin (3.5-5.0) g/dL Disposition Clinical Impression: Esophageal mass, Patterson's esophagus determined by endoscopy Disposition: OTHER INSTITUTION NOT DEFINED Condition: Fair Is patient prescribed a controlled substance at d/c from ED?: No Referrals: Lora Holden MD [Primary Care Provider] - 1-2 days - Out of Hospital Transfer - Req. Specs Out of Hospital Transfer - Requested Specifics: Other Emergency Center ([facility])
[2020-06-21 15:37] LABS: Basophils % (A) 1 %; Eosinophils % (A) 1 %; HCT 45.9 % (39.0-53.0); HGB 14.7 gm/dL (13.0-17.5); Lymphocytes % (A) 13 %; MCH 29.3 pg (25.0-35.0); MCHC 31.9 g/dL (31.0-37.0); MCV 91.9 fL (80.0-100.0); Mean Platelet Volume 7.7; Monocytes # (A) 0.4 k/uL (0-1.0); Monocytes % (A) 5 %; Neutrophils # (A) 5.7 k/uL (1.3-7.7); Neutrophils % (A) 79 %; Platelet Count 188 k/uL (150-450); RDW 14.4 % (11.5-15.5); WBC 7.2 k/uL (3.8-10.6)
[2020-06-21 15:49] LABS: Albumin 4.8 g/dL (3.5-5.0); Calcium 10.1 mg/dL (8.4-10.2); Magnesium 2.3 mg/dL (1.6-2.3); Phosphorus 4.6 mg/dL (2.5-4.5); Potassium 4.2 mmol/L (3.5-5.1); Total Bilirubin 2.3 mg/dL (0.2-1.3); Total Protein 7.7 g/dL (6.3-8.2)
[2020-06-21 15:57] LABS: INR 0.9 (<1.2); Partial Thromboplastin Time 22.7 sec (22.0-30.0); Prothrombin Time 9.9 sec (9.0-12.0)
[2020-06-21 16:56] LABS: Appearance,Urine Clear (Clear); Bilirubin,Urine 1+ (Negative); Blood,Urine Negative (Negative); Color,Urine Yellow; Glucose,Urine (UA) Negative (Negative); Hyaline Casts,Urine 39 /lpf (0-2); Ketones,Urine 3+ (Negative); Leukocyte Esterase,Urine Negative (Negative); Mucus,Urine Many /hpf; Nitrite,Urine Negative (Negative); PH, Urine 5.5 (5.0-8.0); Protein,Urine 1+ (Negative); RBC,Urine 4 /hpf (0-5); Specific Gravity,Urine 1.032 (1.001-1.035); Squamous Epithelial Cell,Urine 1 /hpf (0-4); WBC,Urine 3 /hpf (0-5)
[2020-06-21] MEDS ORDERED: DEXTROSE 5%-0.45% NACL 1,000 ML IV ONE (22:22)
[2020-06-21 22:54] VITALS: BP 122/68; PULSE 69; RESP 16; TEMP 97
== END 2020-06-21 22:54 | disposition other institution (70) ==
LOC: EC 14:44
DX: K22.70 Barrett's esophagus without dysplasia (principal); K22.9 Disease of esophagus, unspecified; Z87.891 Personal history of nicotine dependence; Z85.828 Personal history of other malignant neoplasm of skin
CPT/HCPCS: 36415; 80053; 81001; 82550; 83605; 83735; 84100; 84484; 85025; 85610; 85730; 93005; 96360; 96361; 99285